=== PATIENT | female | born 1975 | race Caucasian/White ===

== ENCOUNTER 2017-01-25 12:01 | Inpatient (IN) | payer OTHER ==
[~2017-01-25] VITALS: Ht 152.4 cm; Wt 62.7 kg
[~2017-01-25 12:01] MED LIST: Hydrocodone Bit/Acetaminophen PO; METF500T4 PO
[2017-01-25] MEDS ORDERED: SOD CHLORIDE 0.9% 1,000 ML IV STA (13:48)
[2017-01-25] MEDS ORDERED: METF1000 PO (13:57)
[2017-01-25] MEDS ORDERED: INSU100I31 SQ (13:58)
[2017-01-25] MEDS ORDERED: INSU100C SQ (13:59)
--- NOTE | 2017-01-25 14:06 | RADRPT ---
PROCEDURE: XR Chest. CLINICAL INDICATION: Numbness TECHNIQUE: Chest AP portable. COMPARISON: 01/04/2016 FINDINGS: The mediastinal structures are unremarkable. The heart is normal in size and configuration. The pu lmonary vascularity is normal. The lung degroot are unremarkable. No consolidation is identified. The pleural spaces are unremarkable. The axial skeleton is unremarkable. IMPRESSION: No active intrathoracic disease. RPTAT: HGDB .Danilo Sanchez MD, MD Date Time Electronically viewed and signed by .Danilo Sanchez MD, MD on 01/25/2017 14:06 .B/
[2017-01-25 14:08] LABS: ADD SCAN DIFF NO
[2017-01-25 14:11] LABS: BASOPHILS % 0.4 % (0.0-2.0); EOSINOPHILS # 0.1 10^3/ul (0.0-0.5); EOSINOPHILS % 0.7 % (0.0-7.0); HEMATOCRIT 40.2 % (37.0-47.0); HEMOGLOBIN 14.8 g/dl (12.0-16.0); LYMPHOCYTES # 2.7 10^3/ul (0.8-2.9); LYMPHOCYTES % 24.4 % (15.0-51.0); MEAN CORPUSCULAR HEMOGLOBIN 31.3 pg (29.0-33.0); MEAN CORPUSCULAR HGB CONC 36.8 g/dl (32.0-37.0); MONOCYTE # 0.5 10^3/ul (0.3-0.9); MONOCYTES % 4.6 % (0.0-11.0); NEUTROPHIL # 7.5 10^3/ul (1.6-7.5); NEUTROPHILS % 69.3 % (39.0-77.0); PLATELET COUNT 246 10^3/UL (140-415); RED BLOOD COUNT 4.73 10^6/ul (4.20-5.40); RED CELL DISTRIBUTION WIDTH 11.9 % (11.5-14.5); WHITE BLOOD COUNT 10.9 10^3/ul (4.8-10.8)
[2017-01-25] MEDS ORDERED: LIRA0.6P SQ (14:19)
[2017-01-25 14:21] LABS: INR 0.91; PROTIME 12.3 Sec (12.2-14.2)
[2017-01-25 14:22] LABS: PARTIAL THROMBOPLASTIN TIME 22.4 Sec (25.0-35.0)
[2017-01-25 14:23] LABS: ALBUMIN/GLOBULIN RATIO 1.07
[2017-01-25 14:24] LABS: ALANINE AMINOTRANSFERASE 16 IU/L (13-69); ALKALINE PHOSPHATASE 127 IU/L (42-121); ASPARTATE AMINO TRANSFERASE 17 IU/L (15-46); BILIRUBIN,TOTAL 0.6 mg/dl (0.2-1.3); BLOOD UREA NITROGEN 10 mg/dl (7-20); CALCIUM 9.6 mg/dl (8.4-10.2); CARBON DIOXIDE 23 mmol/L (21-31); CHLORIDE 103 mmol/L (97-110); CREATININE 0.45 mg/dl (0.44-1.00); GLUCOSE 172 mg/dl (70-220); POTASSIUM 3.5 mmol/L (3.5-5.1)
[2017-01-25 14:25] LABS: ACETAMINOPHEN < 10.0 ug/ml (10.0-30.0); ALBUMIN 4.2 g/dl (3.3-4.9); BILIRUBIN,INDIRECT 0.6 mg/dl (0-1.1); CREATINE KINASE 42 IU/L (23-200); ETHANOL < 10.0 mg/dl; SALICYLATE < 1.0 mg/dl (5.0-30.0); TOTAL PROTEIN 8.1 g/dl (6.1-8.1)
[2017-01-25 14:58] LABS: CK-MB 0.53 ng/ml (0.0-2.4)
[2017-01-25 15:03] LABS: TROPONIN-I < 0.012 ng/ml (0.00-0.12)
[2017-01-25 15:27] LABS: T3 UPTAKE 28.7 % (23.5-40.5)
[2017-01-25] MEDS ORDERED: LORAZEPAM 2 MG INJ IV ONE (15:30)
[2017-01-25 15:45] LABS: ADD UMIC YES; URINE BILIRUBIN (Dip) NEGATIVE (NEGATIVE); URINE BLOOD (Dip) NEGATIVE (NEGATIVE); URINE KETONES (Dip) NEGATIVE (NEGATIVE); URINE LEUKOCYTE ESTERASE (Dip) TRACE (NEGATIVE); URINE NITRITE (Dip) POSITIVE (NEGATIVE); URINE TOTAL PROTEIN (Dip) NEGATIVE (NEGATIVE); URINE UROBILINOGEN (Dip) 0.2 E.U./dL (0.1-1.0)
[2017-01-25 15:54] LABS: URINE COLOR YELLOW (YELLOW)
--- NOTE | 2017-01-25 15:55 | RADRPT ---
PROCEDURE: CT Brain without contrast. CLINICAL INDICATION: Altered mental status status post recent head trauma. TECHNIQUE: A CT of the brain was performed on a multidetector CT scanner utilizing axial sections from the skull base through the vertex without contrast. Images were reviewed on a high-resolution [employer] workstation. Exam CTDI = 39.15 mGy and the DLP = 554.95 mGy-cm. One or more of the following dose reduction techniques were used: Automated exposure control Adjustment of the mA and/or kV according to patient size. Use of iterative reconstruction technique. COMPARISON: None available FINDINGS: There is no evidence of intracranial hemorrhage, mass effect or midline shift. No abnormal intra-ax ial or extra-axial fluid collections are seen. The density of the brain is normal and the llamas/whit e matter differentiation is well preserved. The osseous structures are unremarkable. Paranasal si nuses are clear. IMPRESSION: 1. No intracranial hemorrhage, mass effect or midline shift. RPTAT: BB .Kavin Ayala MD, MD Date Time Electronically viewed and signed by .Kavin Ayala MD, on 01/25/2017 15:54 .O/
[2017-01-25 15:59] LABS: BACTERIA,URINE MANY; SQUAMOUS EPITHELIAL CELL,UR MODERATE; URINE RBCS NONE SEEN /HPF (0)
[2017-01-25 16:22] LABS: ANION GAP 18 (8-16); SODIUM 140 mmol/L (135-144)
[2017-01-25 16:54] LABS: BARBITURATES Negative (NEGATIVE); BENZODIAZEPINES Negative (NEGATIVE); CANNABINOIDS Negative (NEGATIVE); COCAINE Negative (NEGATIVE); OPIATES Negative (NEGATIVE)
[2017-01-25] MEDS ORDERED: ASPIRIN 81 MG TAB PO ONE (17:00)
[2017-01-25] MEDS ORDERED: CEFTRIAXONE 1 GM/50 ML (PMX) 50 ML IVPB ONE (17:00)
[2017-01-25] MEDS ORDERED: METHYLPREDNISOLONE 125 MG INJ IV ONE (17:30)
[2017-01-25] MEDS ORDERED: ACETAMINOPHEN 325 MG TAB PO PRN ×2 (17:30→19:00)
[2017-01-25] MEDS ORDERED: ONDANSETRON 4 MG INJ IV PRN ×2 (17:30→19:00)
--- NOTE | 2017-01-25 17:49 | ERA ---
ER Documentation Chief Complaint Date/Time DATE: 01/25/17 TIME: 17:36 Chief Complaint NUMBNESS IN BILATERAL LEGS, ARMS, MOUTH X2 DAYS. DIFFICULTY WALKING. HPI This is a 42-year-old Stateless-speaking female with a known history of insulin- dependent diabetes mellitus diagnosed 6 years prior to arrival. The patient indicates that for the past 48 hours she has been experiencing bilateral numbness in her lower extremities. She also stated that the numbness started to progress to her fingertips bilaterally. She also indicates that she felt her tongue was numb. She denied any swelling of her tongue or lips. She denies a headache or changes in vision. She states upon awakening this morning she felt very lightheaded and dizzy with worsening of the numbness of her bilateral lower extremities. She walked to the hospital to be further evaluated and upon arrival to the hospital stated she was no longer able to move her left lower extremity or bear weight. She felt very unsteady in her gait. She been placed in a wheelchair and was brought immediately into a bed for further evaluation. She denies any chest pain or pressure that radiates to the neck arm back or jaw. She denies any trauma to her lower extremities. Patient does state however that she has received previous epidural spinal injections over the past several years during her . ROS All systems reviewed and are negative except as per history of present illness. Medications Home Meds Reported Medications Liraglutide (Victoza 2-Shaji) 0.6 Mg/0.1 Ml Pen.injctr, 1.2 MG SQ QAM, SYR 01/25/17 Insulin Lispro (Humalog) 100 Unit/1 Ml Cartridge, 6 UNIT SQ QAM 01/25/17 Insulin Degludec (Tresiba Flextouch U-100) 100 Unit/1 Ml Insuln.pen, 6 UNIT SQ QPM 01/25/17 Metformin Hcl* (Metformin Hcl*) 1,000 Mg Tablet, 1000 MG PO WITH BREAKFAST DINNE , #30 TAB 01/25/17 Discontinued Reported Medications Metformin* (Glucophage*) 500 Mg Tab, 1000 MG PO BID 07/03/13 Discontinued Scripts [Hydrocodone Bit/Acetaminophen] 1 TAB TAB No Conflict Check, 1 TAB PO Q6H Y for PAIN LEVEL 6-10 for 14 Days, TAB Prov:MARSHALL ZAVALA V. [employer] 01/06/16 Allergies Allergies: Coded Allergies: No Known Drug Allergy (Verified Allergy, Unknown, 01/25/17) PMhx/Soc History of Surgery: Yes (C. Section x1, Appendectomy) Anesthesia Reaction: No Hx Neurological Disorder: No Hx Respiratory Disorders: No Hx Cardiac Disorders: No Hx Psychiatric Problems: No Hx Miscellaneous Medical Probl: No Hx Alcohol Use: Yes (Socially ) Hx Substance Use: No Hx Tobacco Use: No Smoking Status: Never smoker Physical Exam Vitals Vital Signs Date Time Temp Pulse Resp B/P Pulse Ox O2 Delivery O2 Flow Rate FiO2 01/25/17 16:00 98.4 78 16 133/90 97 01/25/17 12:18 98.4 90 16 140/88 97 Physical Exam Constitutional:Well-developed. Well-nourished. HEENT:Normocephalic. Atraumatic.Pupils were equal round reactive to light. Moist mucous membranes.No tonsillar exudates. Neck: No nuchal rigidity. No lymphadenopathy. No posterior cervical spine tenderness or step-offs. Respiratory: Not using accessory muscles of respiration.Lungs were clear to auscultation bilaterally. No rhonchi. No rales. No wheezing. Cardiovascular: Regular rate regular rhythm.No murmurs. No rubs were appreciated.S1, S2 normal. Distal pulses are palpable 2+ bilaterally. GI: Abdomen was soft. Nontender. Non Distended. No pulsatile abdominal masses or bruits. No rebound. No guarding. Bowel sounds were present and normal. Muscle skeletal: Full range of motion of both the upper extremities bilaterally.Normal muscle tone.No assymetrical calf tenderness or swelling. Rectal: Normal sphincter tone Skin: No petechia, no purpura. No lesions on the palms or the soles of the feet. No maculopapular rash. NEURO: Patient was alert, awake, orientated x3.No facial droop. Sensation decreased to sharp and dull the bilateral lower extremities. Handgrip equal and symmetrical of the bilateral upper extremities. Patient was unable to actively move the left lower extremity and straight leg test was negative bilaterally. Full range of motion with passive range of motion of the left lower extremity. Muscular strength 3 out of 5 in the right lower extremity. Deep tendon reflexes are equal and symmetrical bilaterally. Result Diagram: 01/25/17 1355 01/25/17 1355 Results 24 hrs Laboratory Tests Test 01/25/17 12:24 01/25/17 13:55 01/25/17 14:30 Bedside Glucose 169mg/dL Acetaminophen Level < 10.0ug/ml Activated Partial Thromboplast Time 22.4Sec Alanine Aminotransferase (ALT/SGPT) 16IU/L Albumin 4.2g/dl Albumin/Globulin Ratio 1.07 Alkaline Phosphatase 127IU/L Anion Gap 18 Aspartate Amino Transf (AST/SGOT) 17IU/L Basophils # 0.010^3/ul Basophils % 0.4% Blood Urea Nitrogen 10mg/dl Calcium Level 9.6mg/dl Carbon Dioxide Level 23mmol/L Chloride Level 103mmol/L Creatine Kinase 42IU/L Creatine Kinase Index 1.3 Creatinine 0.45mg/dl Creatinine Kinase MB (Mass) 0.53ng/ml Direct Bilirubin 0.00mg/dl Eosinophils # 0.110^3/ul Eosinophils % 0.7% Ethyl Alcohol Level < 10.0mg/dl Free Thyroxine Index 2.47ug/ml Globulin 3.90g/dl Glucose Level 172mg/dl Hematocrit 40.2% Hemoglobin 14.8g/dl INR International Normalized Ratio 0.91 Indirect Bilirubin 0.6mg/dl Lymphocytes # 2.710^3/ul Lymphocytes % 24.4% Mean Corpuscular Hemoglobin 31.3pg Mean Corpuscular Hemoglobin Concent 36.8g/dl Mean Corpuscular Volume 85.0fl Mean Platelet Volume 11.0fl Monocytes # 0.510^3/ul Monocytes % 4.6% Neutrophils # 7.510^3/ul Neutrophils % 69.3% Nucleated Red Blood Cells # 0.010^3/ul Nucleated Red Blood Cells % 0.0/100WBC Platelet Count 96191^3/UL Potassium Level 3.5mmol/L Prothrombin Time 12.3Sec Prothrombin Time Ratio 1.0 Red Blood Count 4.7310^6/ul Red Cell Distribution Width 11.9% Salicylates Level < 1.0mg/dl Sodium Level 140mmol/L Thyroxine (T4) 8.6ug/dl Total Bilirubin 0.6mg/dl Total Protein 8.1g/dl Triiodothyronine (T3) Uptake 28.7% Troponin I < 0.012ng/ml White Blood Count 10.910^3/ul Urine Amphetamines Screen Negative Urine Bacteria MANY Urine Barbiturates Negative Urine Benzodiazepines Screen Negative Urine Bilirubin NEGATIVE Urine Cannabinoids Negative Urine Clarity CLOUDY Urine Cocaine Screen Negative Urine Color YELLOW Urine Glucose 0.25%% Urine Hemoglobin NEGATIVE Urine Ketones NEGATIVE Urine Leukocyte Esterase TRACE Urine Microscopic RBC NONE SEEN/HPF Urine Microscopic WBC 5-10/HPF Urine Nitrite POSITIVE Urine Opiates Screen Negative Urine Specific Effie 1.020 Urine Squamous Epithelial Cells MODERATE Urine Total Protein NEGATIVE Urine Urobilinogen 0.2 E.U./dL Urine pH 5.5 Current Medications Medications (Trade) Dose Ordered Sig/Yue Route PRN Reason Start Time Stop Time Status Last Admin Dose Admin Sodium Chloride (NS) 1,000 ml @ 1,000 mls/hr Q1H STAT IV 01/25/17 13:48 01/25/17 14:47 DC 01/25/17 14:00 Lorazepam 1 mg 1 mg ONCE ONCE IV 01/25/17 15:30 01/25/17 15:31 DC 01/25/17 15:47 Ceftriaxone Sodium (Rocephin) 50 ml @ 100 mls/hr ONCE ONCE IVPB 01/25/17 17:00 01/25/17 17:29 DC 01/25/17 17:35 Aspirin (Aspirin) 81 mg ONCE ONCE PO 01/25/17 17:00 01/25/17 17:16 DC 01/25/17 17:35 Methylprednisolone Sodium Succinate (Solu-Medrol) 125 mg ONCE ONCE IV 01/25/17 17:30 01/25/17 17:31 DC 01/25/17 17:35 Ondansetron HCl (Zofran Inj) 4 mg BRIDGE ORDER PRN IV NAUSEA AND/OR VOMITING 01/25/17 17:30 01/26/17 17:29 Acetaminophen (Tylenol Tab) 650 mg ER BRIDGE PRN PO MILD PAIN/FEVER 01/25/17 17:30 01/26/17 17:29 Procedures/MDM The patient presented to the emergency department with numbness of her lower extremities and my differential diagnosis included but was not limited to spinal origins of the pain such as fracture, osteomyelitis, epidural abscess, neoplasm, spondylolishtesis, discogenic, cauda equina syndrome or musculoligamentous. Nonspinal causes such as AAA, upper UTI, renal colic, aortic dissection, abdominal neoplasm were also considered as an etiology into their pain. The patient had IV access that was established by nursing staff. The patient appeared to be in a significant amount of agitation therefore was given IV Ativan intravenously. The patient had weakness of her left lower extremity but was not a TPA candidate given that her symptoms have started over 48 hours prior to arrival. I did indicate that her paresthesias could be a result of diabetic neuropathy but this did not explain the patient's weakness of her left lower extremity. I obtained a CT scan of the head which showed no acute intratubal hemorrhage mass-effect or midline shift. I did feel is necessary to rule out application such as a spinal epidural abscess given that she has had previous epidural injections and therefore the patient is receiving an MRI with and without contrast of the spine. Patient was given IV steroids prophylactically which include 125 mg of solumedrol intravenously. The patient had a urinary tract infection and after urine culture was obtained she did receive IV ceftriaxone. Observation Note: Time: 6 hours Family Hx: No Hypertension Evaluation: Multiple exams showed very mild improvement of the weakness of her left lower extremity. Initially the patient was unable to lift the left lower extremity against gravity and roughly 4 hours after being in the emergency department and receiving Solu-Medrol the patient was able to increase her muscular strength to 2 out of 5 in the left lower extremity Patient will be admitted for further observation into the etiology and to her paresthesias and weakness of her left lower extremity under the care of the hospitalist Dr. Multani. Departure Diagnosis: Primary Impression: Paresthesias Additional Impressions: Weakness of left lower extremity UTI (urinary tract infection) Qualified Code: N30.00 - Acute cystitis without hematuria Condition: Serious KINGSINAI ABARCA Jan 25, 2017 17:47
[2017-01-25 17:57] VITALS: TEMP 98.4
[2017-01-25] MEDS ORDERED: MAGNESIUM HYDROXIDE 30ML CUP PO PRN (19:00)
[2017-01-25] MEDS ORDERED: HYDROCODONE/APAP (5/325) TAB PO PRN (19:00)
[2017-01-25] MEDS ORDERED: NACL 0.9% 3 ML SYG IV SCH (19:00)
[2017-01-25] MEDS ORDERED: ALBUTEROL/IPRATROPIUM (NEB) 3 ML AMP HHN PRN (19:00)
[2017-01-25] MEDS ORDERED: NA PHOSPHATE/BIPHOS 133 ML ENEMA PR PRN (19:00)
[2017-01-25] MEDS ORDERED: NITROGLYCERIN (SL) 0.4 MG TAB SL PRN (19:00)
[2017-01-25] MEDS ORDERED: morphine 2 MG INJ IV PRN (19:00)
[2017-01-25] MEDS ORDERED: GLUCOSE GEL 15 GRAM TUBE BUCCAL PRN (19:00)
[2017-01-25] MEDS ORDERED: LORAZEPAM 2 MG INJ IV PRN (19:00)
[2017-01-25] MEDS ORDERED: hydrALAzine 20 MG INJ IV PRN (19:00)
[2017-01-25] MEDS ORDERED: DEXTROSE 50% 50 ML SYRINGE IV PRN ×2 (19:00)
[2017-01-25] MEDS ORDERED: GLUCAGON 1 MG INJ IM PRN (19:00)
[2017-01-25] MEDS ORDERED: DOCUSATE SODIUM 100 MG CAP PO PRN (19:00)
[2017-01-25] MEDS ORDERED: GLUCOSE GEL 15 GRAM TUBE PO PRN ×2 (19:00)
--- NOTE | 2017-01-25 19:42 | RADRPT ---
PROCEDURE: Carotid ultrasound CLINICAL INDICATION: Lower extremity numbness and dizziness, carotid bruits TECHNIQUE: Lockwood scale, color doppler, spectral doppler ultrasound of the bilateral carotid and helder tebral arteries. This study indirectly references the measurement of the distal ICA diameter as the denominator for s tenosis measurement. Validated velocity measurements with angiographic measurements, velocity criter ia are extrapolated from diameter data as defined by: *Cartoid artery stenosis: lockwood-scale and Doppl er US diagnosis. Society of Radiologists in Ultrasound Consensus Conference. Radiology 2003; 229: 34 0-346. U Consensus Conference Criteria for the Diagnosis of Carotid Artery Stenosis* Degree of Stenosis, % ICA PSV, cm/sec Plaque Estimate, % ICA/CCA PSV Ratio Normal <125 None <2.0 <50 <125 <50 <2.0 50 69 125-230 >50 2.0-4.0 >70 but less than near occlusion >230 >50 <4.0 Near occlusion High, low, or undetectable Visible Variable Total occlusion Undetectable Visible, no detectable lumen Not applicable COMPARISON: No prior studies are available for comparison. FINDINGS: Location Right CCA84 cm/sec Prox ICA 63 cm/sec Mid ICA71 cm/sec Dist ICA68 cm/sec ICR764 cm/sec ICA/CCA0.18 Left CCA89 cm/sec Prox ICA 61 cm/sec Mid ICA83 cm/sec Dist ICA80 cm/sec WQR371 cm/sec ICA/CCA0.9 Plaque burden: No significant plaque is seen. Antegrade flow is seen within the vertebral arteries bilaterally. IMPRESSION: No evidence of a hemodynamically significant carotid stenosis. RPTAT: AADD .Vikash Rodrigues MD, MD Date Time Electronically viewed and signed by .Vikash Rodrigues MD, on 01/25/2017 19:42 .B/
[2017-01-25] MEDS: SOD CHLORIDE 0.45% 1,000 ML IV SCH (19:49)
[2017-01-25 20:25] VITALS: BP 153/72; PULSE 82; RESP 18
[2017-01-25] MEDS ORDERED: INSULIN DEGLUDEC 6 UNIT SQ SCH (21:00)
[2017-01-25 21:26] VITALS: PULSE 90
[2017-01-25 21:46] VITALS: BP 138/72; PULSE 87; RESP 16; Ht 152.4 cm; Wt 62.7 kg
[2017-01-25] MEDS: HEPARIN 5,000 UNIT/0.5 ML SYG SC SCH (22:12)
[2017-01-25] MEDS: INSULIN ASPART [NOVOLOG] 3 ML PEN SC SCH (22:12)
[2017-01-26] VITALS (12 sets, daily range): BP systolic 112–142; BP diastolic 64–77; PULSE 84–109; RESP 14–20
--- NOTE | 2017-01-26 00:45 | RADRPT ---
PROCEDURE: MRI Brain without contrast. CLINICAL INDICATION: Urinary tract infection. Numbness and dizziness.. TECHNIQUE: MRI of the brain was performed with the following sequences obtained: Sagittal, coronal and axial T1-weighted, axial T2-weighted, axial FLAIR, axial diffusion weighted (with ADC map), and coronal GRE. COMPARISON: CT head 01/25/2017 FINDINGS: Areas of restricted diffusion involving the cortices of the parasagittal frontal lobes are present b ilaterally as well as within the right greater than left anterior cerebral artery distributions, ass ociated hyperintense FLAIR signal is present in the series, findings consistent with subacute ischem ic type infarcts possibly related to septic embolism or vasculitis. No additional areas of infarct are noted. No hemorrhage, mass effect or mass lesion is present. The extraaxial spaces are clear o f collections. The ventricular system and sulci are normal. No signal alteration is present within the brainstem or cerebellum. The fourth ventricle is midline and the craniocervical junction lesion is intact. The area of the sella is normal. The bony calvarium and skull base are intact. The visualized paranasal sinuses and mastoid air cell s are clear. Physiologic flow voids within the internal carotid and vertebral arteries are maintain ed. RPTAT:HJJR IMPRESSION: 1. Bilateral anterior cerebral artery distribution subacute ischemic type infarcts involving the cor saulo of the parasagittal posterior frontal lobes near the convexity and the right greater than left c entrum semiovale white matter without associated mass effect. Differential diagnostic possibilities include embolic infarcts, vasculitis and reversible ischemic encephalopathy. Follow-up evaluation i s recommended. 2. No mass effect or hemorrhage is present. Physician Robin Date Time Electronically viewed and signed by Physician Robin on 01/26/2017 00:44 /
--- NOTE | 2017-01-26 00:51 | RADRPT ---
PROCEDURE: MR Lumbar Spine without and with contrast. CLINICAL INDICATION: Numbness and nausea. The patient cannot move lower extremities. Numbness in both legs. TECHNIQUE: An MRI of the lumbar spine was performed utilizing the following sequences: Sagittal T1 -weighted, sagittal T2-weighted, sagittal STIR, axial T2-weighted dual echo. After the intravenous i njection of 10 cc Magnevist, axial and sagittal T1 fat suppressed images are obtained COMPARISON: None. FINDINGS: Vertebral bodies: Transitional tab anatomy is present at the lumbosacral junction, the most caudal n ormal appearing discs designated as L5-S1 for the purposes of this report. Should future surgical i ntervention ever be contemplated, verification of the levels with a complete lumbar spine series or CT recommended. Hemangiomata, hyperintense on T1 images with decreased signal on the post contrast fat suppressed sequences are present in the T12, L1 and L2 designated levels. There is no pathologi c enhancement, compression fracture or subluxation.. Conus medularis region: Normal in signal intensity and location terminating at the L1 level. No path ologic intraspinal enhancement is present T12-L1: No discogenic abnormality of significance is seen. There is no facet arthropathy. The centr al canal is patent. There is no evidence for foraminal stenosis. L1-L2: No discogenic abnormality of significance is seen. There is no facet arthropathy. The ligamen jennifer flava are normal in thickness. The central canal is patent. There is no evidence for foraminal stenosis. L2-L3: No discogenic abnormality of significance is seen. There is no facet arthropathy. The ligamen jennifer flava are normal in thickness. The central canal is patent. There is no evidence for foraminal stenosis. L3-L4: There is signal loss without loss of disk stature and a broad-based 5 mm central and left par acentral disk protrusion causing mild left lateral recess stenosis. There is no facet arthropathy. T he ligamentum flava are normal in thickness. The central canal is patent. There is no evidence for foraminal stenosis. L4-L5: No discogenic abnormality of significance is seen. There is no facet arthropathy. The ligamen jennifer flava are normal in thickness. The central canal is patent. There is no evidence for foraminal stenosis. L5-S1: No discogenic abnormality of significance is seen. There is no facet arthropathy. The ligamen jennifer flava are normal in thickness. The central canal is patent. There is no evidence for foraminal stenosis. Sacrum and sacroiliac joints: No abnormalities are identified, the joints are normal and symmetric. None spine related findings: No abnormalities are demonstrated. RPTAT:HJJR IMPRESSION: 1. Transitional lumbosacral anatomy, the most caudal normal appearing disk designated as L5-S1 for the purposes of this report. 2. Central left paracentral 5 mm disk protrusion at the designated L3-4 level causing left lateral recess stenosis without associated central canal or foraminal narrowing. 3. No evidence of mass lesion, infection or pathologic enhancement Physician Robin Date Time Electronically viewed and signed by Physician Robin on 01/26/2017 00:51 JR/
[2017-01-26] MEDS: INSULIN ASPART [NOVOLOG] 3 ML PEN SC SCH ×7 (00:53→21:48)
[2017-01-26] MEDS: DEXAMETHASONE 4 MG/ML 1 ML INJ IV SCH ×3 (00:53→11:34)
--- NOTE | 2017-01-26 00:56 | RADRPT ---
PROCEDURE: MR thoracic spine without and with contrast CLINICAL INDICATION: Numbness to lower extremities and nausea. TECHNIQUE: An MRI of the thoracic spine was performed utilizing sagittal T1-weighted, sagittal and axial T2-weighted, and sagittal STIR. After the intravenous injection of 10 cc Magnevist, axial and sagittal postcontrast T1 fat suppressed images are obtained COMPARISON: None available. FINDINGS: Vertebral bodies: Signal intensity within the T5 vertebral body level on all sequences and shows no evidence of enhancement, findings most likely an atypical hemangioma. More typical small hemangiom anant are present in T7 and T12. There is no evidence of fracture or pathologic enhancement. The kypho sis is intact as is alignment. Thoracic spinal cord: Normal in signal intensity and caliber at every level. No abnormal intraspinal enhancement is demonstrated T1-2: There is preservation of disk signal intensity and stature with no central canal or foraminal stenosis. The facet joints are normal. T2-3: No discogenic abnormality of significance is seen and there is no central canal or foraminal s tenosis. The facet joints are intact. T3-4: No discogenic abnormality of significance is seen and there is no central canal or foraminal stenosis. The facet joints are intact. T4-5: No discogenic abnormality of significance is seen and there is no facet arthropathy, central canal or foraminal stenosis. T5-6: No discogenic abnormality of significance is seen and there is no facet arthropathy, central canal or foraminal stenosis T6-7: No discogenic abnormality of significance is seen and there is no central canal or foraminal stenosis. The facet joints are intact. T7-8: No discogenic abnormality of significance is seen and there is no facet arthropathy, central c anal or foraminal stenosis T8-9: No discogenic abnormality of significance is seen and there is no facet arthropathy, central canal or foraminal stenosis T9-10: No discogenic abnormality of significance is seen and there is no facet arthropathy, central canal or foraminal stenosis T10-11: No discogenic abnormality of significance is seen and there is no facet arthropathy, central canal or foraminal stenosis T11-12: No discogenic abnormality of significance is seen and there is no facet arthropathy, centra l canal or foraminal stenosis T12-L1: No discogenic abnormality of significance is seen and there is no facet arthropathy, centra l canal or foraminal stenosis Non spine related findings: No abnormalities of significance are demonstrated. RPTAT:HJJR IMPRESSION: 1. No discogenic abnormalities significance at any level and no evidence of central canal or forami nal stenosis in the thoracic spine. 2. Normal appearing thoracic spinal cord without evidence of pathologic enhancement. 3. Hemangiomata of the vertebral bodies including what is likely an atypical signal pattern for the T5 level. Physician Robin Date Time Electronically viewed and signed by Jose Martin Kaur Physician on 01/26/2017 00:55 JR/
[2017-01-26] MEDS: PANTOPRAZOLE 40 MG INJ IV SCH (05:22)
[2017-01-26] MEDS: SOD CHLORIDE 0.45% 1,000 ML IV SCH ×3 (07:53→21:13)
[2017-01-26 08:02] LABS: ADD SCAN DIFF NO
[2017-01-26 08:03] LABS: CHOL/HDL RATIO 3.3 RATIO
[2017-01-26] MEDS: ASPIRIN (EC) 325 MG TAB PO SCH (08:20)
[2017-01-26] MEDS: HEPARIN 5,000 UNIT/0.5 ML SYG SC SCH ×2 (08:21→21:49)
[2017-01-26] MEDS ORDERED: INSULIN LISPRO 6 UNIT SQ SCH (09:00)
[2017-01-26] MEDS ORDERED: INSULIN GLARGINE [LANtus] 3 ML PEN SC SCH (09:00)
[2017-01-26] MEDS ORDERED: NON-FORMULARY/PATIENT OWN MED (Liraglutide (Victoza 2-Pak) 1.2 MG) SQ SCH (09:00)
[2017-01-26 09:20] LABS: BASOPHILS % 0.1 % (0.0-2.0); HEMATOCRIT 37.6 % (37.0-47.0); HEMOGLOBIN 13.6 g/dl (12.0-16.0); LYMPHOCYTES % 6.8 % (15.0-51.0); MEAN CORPUSCULAR HEMOGLOBIN 31.1 pg (29.0-33.0); MEAN CORPUSCULAR HGB CONC 36.2 g/dl (32.0-37.0); MEAN CORPUSCULAR VOLUME 85.8 fl (82.0-101.0); MEAN PLATELET VOLUME 11.1 fl (7.4-10.4); MONOCYTE # 0.1 10^3/ul (0.3-0.9); MONOCYTES % 0.5 % (0.0-11.0); NEUTROPHIL # 14.1 10^3/ul (1.6-7.5); NEUTROPHILS % 92.1 % (39.0-77.0); PLATELET COUNT 232 10^3/UL (140-415); RED BLOOD COUNT 4.38 10^6/ul (4.20-5.40); RED CELL DISTRIBUTION WIDTH 11.9 % (11.5-14.5); WHITE BLOOD COUNT 15.3 10^3/ul (4.8-10.8)
[2017-01-26 09:29] LABS: POTASSIUM 3.9 mmol/L (3.5-5.1)
[2017-01-26 09:30] LABS: THYROID STIMULATING HORMONE 0.217 MIU/L (0.465-4.680)
[2017-01-26 09:31] LABS: CREATININE 0.43 mg/dl (0.44-1.00)
[2017-01-26 09:32] LABS: MAGNESIUM 1.9 mg/dl (1.7-2.5); PHOSPHORUS 3.5 mg/dl (2.5-4.9)
--- NOTE | 2017-01-26 10:31 | HP ---
Date/Time of Note Date/Time of Note DATE: 01/26/17 TIME: 10:21 Assessment/Plan VTE Prophylaxis VTE Prophylaxis Intervention: heparin Lines/Catheters IV Catheter Type (from Nrsg): Peripheral IV Assessment/Plan Assessment/Plan IMPRESSION 1. Left leg weakness, most likely 2/2 CVA 2. Subacute CVA PLAN Left leg weakness is most likely 2/2 CVA. Spinal images without caude equina - Cont Aspirin and statin - physical therapy - Awaiting neurology consult HPI/ROS Admit Date/Time Admit Date/Time Jan 25, 2017 at 17:17 Hx of Present Illness This is a 42 yo female with hx of DM and cholecystitis, status post cholecystectomy in 2016, appendectomy and presented to [facility] with left leg weakness of 3 days duration. Symptom is of acute onset. Denied trauma, dysarthria, facial droop, visual disturbances, chest pain or Shortness of breath. she also denied bowel or urinary incontinence or seizure like activities. At the onset of symptom, she said she bumped her forehead into an open door sustaining very small laceration above left eye. denied loss of consciousness. Left leg weakness is getting much better. Initially, seems like she had almost complete paralysis, but now she has regained much of her strength back. . PMH/Family/Social Past Medical History Medical History: diabetes Past Surgical History Past Surgical Hx: appendectomy, cholecystectomy, other (c/s) Social History Alcohol Use: none Smoking Status: Never smoker Drug Use: none Exam/Review of Systems Vital Signs Vitals Vital Signs Date Time Temp Pulse Resp B/P Pulse Ox O2 Delivery O2 Flow Rate FiO2 01/26/17 08:13 84 01/26/17 07:49 98.2 18 119/71 95 01/26/17 07:18 Room Air Intake and Output 01/25/17 01/25/17 01/26/17 15:00 23:00 07:00 Intake Total 900 ml Balance 900 ml Exam Constitutional: alert, oriented, well developed Head: atraumatic, normocephalic Eyes: EOMI, PERRL Neck: non-tender, supple Respiratory: clear to auscultation, normal air movement Cardiovascular: nl pulses, regular rate and rhythm Gastrointestinal: non-tender, soft Extremities: normal pulses Neurological: focal weakness, other (of left leg. also left leg numbess) Labs Result Diagram: 01/26/1752 01/26/17651 Medications Medications Current Medications Ondansetron HCl (Zofran Inj) 4 mg Q6H PRN IV NAUSEA AND/OR VOMITING; Start 01/25 at 19:00 Acetaminophen (Tylenol Tab) 650 mg Q6H PRN PO PAIN LEVEL 1-3 OR FEVER; Start at 19:00 Acetaminophen/ Hydrocodone Bitart ([place] (5/325)) 1 tab Q6H PRN PO MODERATE PAIN LEVEL 4-6; Start 01/25/17 at 19:00 Morphine Sulfate (morphine) 2 mg Q4H PRN IV SEVERE PAIN LEVEL 7-10; Start at 19:00 Docusate Sodium (Colace) 100 mg Q12H PRN PO CONSTIPATION; Start 01/25/17 at 19: 00 Magnesium Hydroxide (Milk Of Mag) 30 ml DAILY PRN PO CONSTIPATION; Start at 19:00 Sodium Biphosphate/ Sodium Phosphate (Fleet Enema) 133 ml DAILY PRN [place] CONSTIPATION; Start 01/25/17 at 19:00 Pantoprazole (Protonix Iv) 40 mg DAILY@06 IV Last administered on 01/26/17 05: 22; Admin Dose 40 MG; Start 01/26/17 at 06:00 Heparin Sodium (Porcine) 5000 unit 5,000 unit Q12 SC Last administered on 08:21; Admin Dose 5,000 UNIT; Start 01/25/17 at 21:00 Sodium Chloride (1/2 NS) 1,000 ml @ 75 mls/hr [id number] IV Last administered on 01/25/17 19:49; Admin Dose 75 MLS/HR; Start 01/25/17 at 18:33 Lorazepam (Ativan) 0.5 mg Q6H PRN IV ANXIETY; Start 01/25/17 at 19:00 Hydralazine HCl 10 mg 10 mg Q6H PRN IV ELEVATED BLOOD PRESSURE; Start 01/25/17 at 19:00 Ceftriaxone Sodium (Rocephin) 50 ml @ 100 mls/hr Q24H IVPB ; Start 01/26/17 at 17:30 Nitroglycerin (Nitroglycerin (Sl Tab) 0.4 Mg) 1 tab Q5M PRN SL ANGINA; Start at 19:00 Aspirin (Ecotrin) 325 mg DAILY PO Last administered on 01/26/17 08:20; Admin Dose 325 MG; Start 01/26/17 at 09:00 Miscellaneous Information 1.2 mg QAM SQ ; Start 01/26/17 at 09:00; Status UNV Dexamethasone (Decadron) 2 mg Q6 IV Last administered on 01/26/17 05:22; Admin Dose 2 MG; Start 01/26/17 at 00:00 Insulin Aspart (Novolog Insulin Pen) NOVOLOG *MILD* ALGORI... Q4 SC Last administered on 01/26/17 08:26; Admin Dose 3 UNIT; Start 01/25/17 at 21:00 Miscellaneous Information 1 ea NOTE XX ; Start 01/25/17 at 19:00 Glucose (Glutose) 15 gm Q15M PRN PO DECREASED GLUCOSE; Start 01/25/17 at 19:00 Glucose (Glutose) 22.5 gm Q15M PRN PO DECREASED GLUCOSE; Start 01/25/17 at 19:00 Dextrose (D50w Syringe) 25 ml Q15M PRN IV DECREASED GLUCOSE; Start 01/25/17 at 19:00 Dextrose (D50w Syringe) 50 ml Q15M PRN IV DECREASED GLUCOSE; Start 01/25/17 at 19:00 Glucagon (Glucagen) 1 mg Q15M PRN IM DECREASED GLUCOSE; Start 01/25/17 at 19:00 Glucose (Glutose) 15 gm Q15M PRN BUCCAL DECREASED GLUCOSE; Start 01/25/17 at 19: 00 Atorvastatin Calcium (Lipitor) 20 mg HS PO ; Start 01/26/17 at 21:00 Insulin Glargine (Lantus) 12 unit AM SC Last administered on 01/26/17 10:05; Admin Dose 12 UNIT; Start 01/26/17 at 09:00 DEISY MIRZA MD Jan 26, 2017 10:31
[2017-01-26] MEDS ORDERED: HYPOGLYCEMIA PROTOCOL when Glucose is <70 mg/dL or symptomatic <90 mg/dL. XX ONE (16:00)
[2017-01-26] MEDS ORDERED: Discontinue Glyburide, Glipizide, and/or Glimepiride prior to starting Insulin XX ONE (16:00)
--- NOTE | 2017-01-26 16:07 | PN ---
DATE: 01/26/2017 SUBJECTIVE: The patient is ambulating. Per nursing staff, she has more strength in her left lower extremity now, but still somewhat weak. Still waiting to be seen by neurology team. Denies any hea daches or vision changes. OBJECTIVE VITAL SIGNS: Stable. GENERAL: The patient is lying in bed, answering questions appropriately. No acute distress. HEENT: Pupils equal, round, react to light. Extraocular muscles intact. NECK: Supple, no thyromegaly. LUNGS: Clear to auscultation bilaterally. CARDIOVASCULAR: S1, S2 heard. No rubs or gallops. ABDOMEN: Soft, nontender, nondistended. Normal bowel sounds. No rebound or guarding. MUSCULOSKELETAL: No lower extremity edema bilaterally. NEUROLOGIC: She has about 4/5 strength on the left lower extremity. Sensation appears to be intact , 5/5 strength in the right lower extremity and in the bilateral upper extremities as well. She is able to ambulate, but still having some weakness. She needs assistance when not ambulating. LABORATORY: Triglycerides are 191, total cholesterol is 119, LDL is 45, HDL is 36. Her A1c is 8.5. Her UA does show positive nitrites and trace leukocyte esterase positive. The urine culture preli minary shows greater than 100,000 gram-negative rods. The MRI of the brain did show bilateral anterior cerebral artery distribution, subacute ischemic typ e infarcts involving the cortex of the parasagittal posterior frontal lobes near the convexity and t he right greater than the left centrum semiovale white matter, but no associated mass effect. Lumba r spine MRI showed central left paracentral 5 mm disk protrusion at the definite L3 to L4 level caus ing left lateral recess stenosis without associated central canal or foraminal narrowing. T spine MR I showed a hemangiomata of the vertebral bodies, including what is likely an atypical signal pattern for T5 level, otherwise no discogenic abnormalities significant at any level. No evidence of any c entral canal foraminal stenosis of the T spine. ASSESSMENT AND PLAN: A 42-year-old female coming in with left lower extremity weakness for the last 2 days with signs of subacute infarct on brain imaging. 1. Lower extremity weakness. Symptoms likely secondary to acute stroke, less likely secondary to a ny kind of T or L-spine abnormalities. For now, continue high dose statin and high dose aspirin. A waiting neurology consult, follow up their recommendations. Will cautiously continue steroids, but consider weaning dose since there is less likely of a cord pathology at this point. 2. Continue neuro checks as well. PT and OT consult, follow up their recommendations as well. Con addictions therapist speech therapy evaluation as well. 3. Type 2 diabetes, uncontrolled. Continue insulin sliding scale as well as Lantus insulin. Consi trey adjusting the dosages as well. 4. Urinary tract infection. Again, follow up final culture results. Continue broad-spectrum antib iotics for now. Tylenol p.r.n. pain, fevers. 5. Gastrointestinal prophylaxis. Proton pump inhibitors. 6. Deep venous thrombosis prophylaxis. Heparin subcutaneously. Dictated By: MALLY MIRANDA Conf#: [id number] DID#: [id number]
[2017-01-26] MEDS: CEFTRIAXONE 1 GM/50 ML (PMX) 50 ML IVPB SCH (18:09)
[2017-01-26] MEDS ORDERED: ATORVASTATIN 20 MG TAB PO SCH (21:00)
[2017-01-26] MEDS: ATORVASTATIN 80 MG TAB PO SCH (21:40)
[2017-01-27] VITALS (12 sets, daily range): BP systolic 100–128; BP diastolic 56–85; PULSE 60–78; RESP 20
[2017-01-27] MEDS: ACCUCHECK XX SCH (02:08)
--- NOTE | 2017-01-27 03:55 | SP ---
DATE OF PROCEDURE: 01/25/2017 REFERRING PHYSICIAN: Dr. Qiu Thank you for asking me to see the patient with you. HISTORY OF PRESENT ILLNESS: The patient is a 43-year-old with a past medical history of diabetes, c holecystitis, status post cholecystectomy 2016, appendectomy. The patient admitted with left-sided numbness and tingling with the possibility of weakness for which the patient was admitted to Dr. Brigette castaneda's service. He called me for more evaluation and treatment. CURRENT MEDICATIONS: Include 1. Prednisone 60 mg once a day. 2. Lantus 18 units. 3. Lipitor 80 mg once a day. 4. Ceftriaxone every 24 hour. 5. Aspirin 325 mg once a day. 6. Protonix 40 mg once a day. 7. Heparin 5000 twice a day. 8. Zofran 4 mg every 6 hours as needed. 9. Morphine sulfate 2 mg every 4 hours. 10. Colace 100 mg twice a day. 11. Milk of magnesia 30 mg once a day. 12. Fleet enema once a day. 13. Glucagon 1 mg twice a day. 14. Sodium chloride as needed. PHYSICAL EXAMINATION: GENERAL: Today, the patient is alert, awake, oriented for time, place, and person. Normal speech a nd normal language. CRANIAL NERVES: Cranial nerve II: Pupils equal on both sides, reactive to light. Cranial nerves I II, IV, and : Extraocular muscles intact. No nystagmus. Cranial nerve V: Equal sensation to fa ce. Cranial nerve VII: Symmetrical face. Cranial nerve VIII: Equal hearing bilaterally. Cranial nerve X: Elevates palate. Cranial nerve XI: Elevates shoulder 5/5. Cranial nerve XII: With str aight tongue. MOTOR: Right side is 4+/5. Sensation decreased on the right side for light touch and temperature. COORDINATION: [id number]-[id number] test intact. HEART: Regular rate and rhythm. LUNGS: Equal breath sounds. ABDOMEN: Soft, relaxed, nondistended. No tenderness. ASSESSMENT AND PLAN 1. The patient is a 43-year-old lady with the possibility of underlying stroke. Keep the patient o n aspirin 325 mg for stroke prophylaxis and follow up the patient with carotid Doppler and 2D echoca rdiogram. 2. Dyslipidemia. Maximize her statin, and follow up the patient with lipid panel. The patient alr chao on Lipitor 80 mg once a day. 3. History of diabetes. We will follow up the patient's hemoglobin A1c and discuss with the patien t about the importance to keep the blood sugar under good control. 4. Peripheral neuropathy probably secondary to diabetes. 5. Keep the blood pressure at the level of 140/90 or less to avoid any extension of her stroke. 6. We will follow up the patient with physical therapy and occupational therapy. Again, thank you for asking me to see the patient with you. Dictated By: IAM BUNCH/SID Conf#: [id number] DID#: [id number]
[2017-01-27] MEDS: PANTOPRAZOLE 40 MG INJ IV SCH (05:26)
--- NOTE | 2017-01-27 07:26 | PN ---
Date/Time of Note Date/Time of Note DATE: 01/27/17 TIME: 07:23 Assessment/Plan VTE Prophylaxis VTE Prophylaxis Intervention: SCD's Lines/Catheters IV Catheter Type (from Nrsg): Peripheral IV Assessment/Plan Assessment/Plan IMPRESSION 1. Left leg weakness, most likely 2/2 CVA 2. Subacute CVA 3. GNR UTI 4. Leukocytosis: combination of steroid induced and UTI 5. Diabetes: A1C 8.5 PLAN Left leg weakness is most likely 2/2 CVA. Spinal images without caude equina - Cont Aspirin and statin - physical therapy - Appreciate neurology consult - For GNR UTI, will cont abx. f/u speciation and sensitivity - Insulin for diabetes Subjective 24 Hr Interval Summary Free Text/Dictation left leg weakness is getting better Exam/Review of Systems Vital Signs Vitals Vital Signs Date Time Temp Pulse Resp B/P Pulse Ox O2 Delivery O2 Flow Rate FiO2 01/27/17 04:28 98.5 85 20 128/85 98 01/26/17 07:18 Room Air Intake and Output 01/26/17 01/26/17 01/27/17 15:00 23:00 07:00 Intake Total 720 ml 250 ml Balance 720 ml 250 ml Exam Constitutional: alert, oriented, well developed Head: atraumatic, normocephalic Eyes: EOMI, PERRL Neck: non-tender, supple Respiratory: clear to auscultation, normal air movement Cardiovascular: nl pulses, regular rate and rhythm Gastrointestinal: non-tender, soft Extremities: normal pulses Neurological: focal weakness, other (of left leg. also left leg numbess) Results Result Diagram: 01/26/17 0652 01/26/17 0652 Results 24 hrs Laboratory Tests Test 01/26/17 08:23 01/26/17 11:41 01/26/17 17:47 01/26/17 21:39 Bedside Glucose 227 H 202 269 H 225 H Test 01/27/17 01:56 Bedside Glucose 205 Medications Medications Current Medications Ondansetron HCl (Zofran Inj) 4 mg Q6H PRN IV NAUSEA AND/OR VOMITING; Start 01/25 at 19:00 Acetaminophen (Tylenol Tab) 650 mg Q6H PRN PO PAIN LEVEL 1-3 OR FEVER; Start at 19:00 Acetaminophen/ Hydrocodone Bitart ([place] (5/325)) 1 tab Q6H PRN PO MODERATE PAIN LEVEL 4-6; Start 01/25/17 at 19:00 Morphine Sulfate (morphine) 2 mg Q4H PRN IV SEVERE PAIN LEVEL 7-10; Start at 19:00 Docusate Sodium (Colace) 100 mg Q12H PRN PO CONSTIPATION; Start 01/25/17 at 19: 00 Magnesium Hydroxide (Milk Of Mag) 30 ml DAILY PRN PO CONSTIPATION; Start at 19:00 Sodium Biphosphate/ Sodium Phosphate (Fleet Enema) 133 ml DAILY PRN [place] CONSTIPATION; Start 01/25/17 at 19:00 Pantoprazole (Protonix Iv) 40 mg DAILY@06 IV Last administered on 01/27/17 05: 26; Admin Dose 40 MG; Start 01/26/17 at 06:00 Heparin Sodium (Porcine) 5000 unit 5,000 unit Q12 SC Last administered on 21:49; Admin Dose 5,000 UNIT; Start 01/25/17 at 21:00 Sodium Chloride (1/2 NS) 1,000 ml @ 75 mls/hr [id number] IV Last administered on 01/26/17 11:34; Admin Dose 75 MLS/HR; Start 01/25/17 at 18:33 Lorazepam (Ativan) 0.5 mg Q6H PRN IV ANXIETY; Start 01/25/17 at 19:00 Hydralazine HCl 10 mg 10 mg Q6H PRN IV ELEVATED BLOOD PRESSURE; Start 01/25/17 at 19:00 Ceftriaxone Sodium (Rocephin) 50 ml @ 100 mls/hr Q24H IVPB Last administered on 01/26/17 18:09; Admin Dose 100 MLS/HR; Start 01/26/17 at 17:30 Nitroglycerin (Nitroglycerin (Sl Tab) 0.4 Mg) 1 tab Q5M PRN SL ANGINA; Start at 19:00 Aspirin (Ecotrin) 325 mg DAILY PO Last administered on 01/26/17 08:20; Admin Dose 325 MG; Start 01/26/17 at 09:00 Miscellaneous Information 1 ea NOTE XX ; Start 01/25/17 at 19:00 Glucose (Glutose) 15 gm Q15M PRN PO DECREASED GLUCOSE; Start 01/25/17 at 19:00 Glucose (Glutose) 22.5 gm Q15M PRN PO DECREASED GLUCOSE; Start 01/25/17 at 19:00 Dextrose (D50w Syringe) 25 ml Q15M PRN IV DECREASED GLUCOSE; Start 01/25/17 at 19:00 Dextrose (D50w Syringe) 50 ml Q15M PRN IV DECREASED GLUCOSE; Start 01/25/17 at 19:00 Glucagon (Glucagen) 1 mg Q15M PRN IM DECREASED GLUCOSE; Start 01/25/17 at 19:00 Glucose (Glutose) 15 gm Q15M PRN BUCCAL DECREASED GLUCOSE; Start 01/25/17 at 19: 00 Atorvastatin Calcium (Lipitor) 80 mg HS PO Last administered on 01/26/17 21:40 ; Admin Dose 80 MG; Start 01/26/17 at 21:00 Prednisone (Prednisone) 60 mg DAILY PO ; Start 01/27/17 at 09:00 Insulin Glargine (Lantus) 18 unit AM SC ; Start 01/27/17 at 09:00 Diagnostic Test (Pha) (Accucheck) 1 ea 02 XX Last administered on 01/27/17 02: 08; Admin Dose 1 EA; Start 01/27/17 at 02:00 DEISY MIRZA MD Jan 27, 2017 07:26
[2017-01-27] MEDS: INSULIN ASPART [NOVOLOG] 3 ML PEN SC SCH ×7 (08:10→20:44)
[2017-01-27] MEDS: INSULIN GLARGINE [LANtus] 3 ML PEN SC SCH (08:11)
[2017-01-27] MEDS: HEPARIN 5,000 UNIT/0.5 ML SYG SC SCH ×2 (08:12→20:45)
[2017-01-27] MEDS: ASPIRIN (EC) 325 MG TAB PO SCH (08:13)
[2017-01-27] MEDS: predniSONE 20 MG TAB PO SCH (08:14)
[2017-01-27 08:49] LABS: ADD SCAN DIFF NO
[2017-01-27 09:04] LABS: BASOPHILS % 0.2 % (0.0-2.0); EOSINOPHILS % 0.3 % (0.0-7.0); HEMATOCRIT 36.9 % (37.0-47.0); HEMOGLOBIN 13.1 g/dl (12.0-16.0); LYMPHOCYTES # 3.3 10^3/ul (0.8-2.9); LYMPHOCYTES % 32.4 % (15.0-51.0); MEAN CORPUSCULAR HEMOGLOBIN 31.1 pg (29.0-33.0); MEAN CORPUSCULAR HGB CONC 35.5 g/dl (32.0-37.0); MEAN CORPUSCULAR VOLUME 87.6 fl (82.0-101.0); MEAN PLATELET VOLUME 10.7 fl (7.4-10.4); MONOCYTE # 0.4 10^3/ul (0.3-0.9); MONOCYTES % 4.3 % (0.0-11.0); NEUTROPHIL # 6.4 10^3/ul (1.6-7.5); NEUTROPHILS % 62.4 % (39.0-77.0); PLATELET COUNT 223 10^3/UL (140-415); RED BLOOD COUNT 4.21 10^6/ul (4.20-5.40); RED CELL DISTRIBUTION WIDTH 12.2 % (11.5-14.5); WHITE BLOOD COUNT 10.3 10^3/ul (4.8-10.8)
[2017-01-27 10:19] LABS: CREATININE 0.51 mg/dl (0.44-1.00)
[2017-01-27 10:20] LABS: CALCIUM 8.7 mg/dl (8.4-10.2)
[2017-01-27] MEDS: SOD CHLORIDE 0.45% 1,000 ML IV SCH ×2 (10:33→15:35)
--- NOTE | 2017-01-27 13:14 | RADRPT ---
Echocardiogram Report Patient Name: EDUARD LA Gender: Female Date: 1975 Study Date: 26-Jan-2017 Spool Tender: MARGARITA Location: E Ref. Physician: MALLY LATHAM Quality: Adequate Procedures: Transthoracic echocardiogram with complete 2D, M-Mode, and Doppler examination. Indications: Shortness of breath. 2D/M Mode Doppler Measurement Value Normal Ranges Measurement Value Normal Ranges AoR Diam MM 2.9 cm AV Peak Brent 1.7 m/sec ACS MM 1.7 cm AV Peak PG 11.3 mmHg LVIDd 2D 4.4 3.5 - 5.6 cm LVOT Peak Brent 1.0 m/sec LVIDs 2D 2.5 2.1 - 4.1 cm LVOT Peak PG 4.1 mmHg LVPWd 2D 0.8 0.6 - 1.1 cm MV E Peak Brent 0.7 m/sec IVSd 2D 1.0 0.6 - 1.1 cm MV A Peak Brent 0.9 m/sec EDV 2D 87.2 cm3 MV E/A 0.8 ESV 2D 15.0 cm3 MV Decel Time 159 msec LA Dimen 2D 3.6 2.3 - 4.0 cm MV Decel [place] 5 MV E/A 0.8 TR Peak Brent 1.9 m/sec TR Peak PG 14.0 mmHg PV Peak Brent 1.3 m/sec PV Peak PG 7.0 mmHg RVSP 17.0 mmHg Findings Left Ventricle: Normal left ventricular systolic function. Normal left ventricular cavity size. Normal left ventricular wall thickness. Ejection fraction is visually estimated at 65 %. Tissue Doppler/Mitral Doppler indices are consistent with impaired relaxation (Stage I diastolic dysfunction). Right Ventricle: Normal right ventricular size. Normal right ventricular systolic function. Left Atrium: The left atrium is normal in size. Right Atrium: The right atrium is normal in size. Atrial Septum: Normal atrial septum. Mitral Valve: Normal appearance and function of the mitral valve with trace physiologic regurgitation. Aortic Valve: Normal appearance of the aortic valve. No significant aortic stenosis or insufficiency. Tricuspid Valve: Normal appearance and function of the tricuspid valve with trace physiologic regurgitation. Estimated peak PA systolic pressure 17 mmHg. Pulmonic Valve: Normal pulmonic valve appearance. There is trace pulmonic regurgitation. Pericardium: Normal pericardium with no significant pericardial effusion. Aorta: Normal aortic root. IVC: Normal size and normal respiratory collapse consistent with normal right atrial pressure. Pulmonary Artery: Normal pulmonary artery size. Conclusions 1.Normal left ventricular systolic function. Normal left ventricular cavity size. Normal left ventricular wall thickness. Ejection fraction is visually estimated at 65 %. Tissue Doppler/Mitral Doppler indices are consistent with impaired relaxation (Stage I diastolic dysfunction). 2.Normal right ventricular size. Normal right ventricular systolic function. 3.The left atrium is normal in size. 4.The right atrium is normal in size. 5.No significant valvular stenosis or regurgitation seen. 6.Normal pericardium with no significant pericardial effusion. Electronically Signed By: Calvin Hutchinson 27-Jan-2017 13:13:27 -0800 Patient Name: EDUARD LA Study Date: 26-Jan-[id number]
[2017-01-27] MEDS: CEFTRIAXONE 1 GM/50 ML (PMX) 50 ML IVPB SCH (17:41)
[2017-01-27] MEDS: ATORVASTATIN 80 MG TAB PO SCH (20:45)
[2017-01-28] VITALS (13 sets, daily range): BP systolic 99–114; BP diastolic 56–69; PULSE 48–63; RESP 18–20
[2017-01-28] MEDS: SOD CHLORIDE 0.45% 1,000 ML IV SCH
--- NOTE | 2017-01-28 01:16 | HKNOTE ---
DATE OF SERVICE: REFERRING PHYSICIAN: Dr. Multani. Thank you for asking me to see the patient with you. HISTORY OF PRESENT ILLNESS: The patient is 43 years old with a past medical history of diabetes, ch olecystitis, appendectomy. The patient admitted to left side tingling and numbness. CURRENT MEDICATIONS: Include: 1. Aspirin 325 mg once a day. 2. Heparin 5000 units twice a day. 3. Lipitor 80 mg once a day. 4. Lantus 18 units once a day. 5. Protonix 40 mg once a day. 6. Morphine sulfate 2 mg every 4 hours. 7. ____ once a day. 8. ____ mg once a day. 9. Sodium chloride as needed. PHYSICAL EXAMINATION: GENERAL: On exam today the patient is alert, awake, oriented to time, place, and person. Normal sp eech and normal language. CRANIAL NERVES EXAM: Cranial nerve II: Pupils are equal on both sides, reactive to light. Cranial nerves III, IV and : Extraocular muscles intact. Cranial nerve V: Equal sensation to face. General Contractor nial nerve VII: Symmetrical face. Cranial nerve VIII: Equal hearing bilaterally. Cranial nerves IX, X: Elevates ____. Cranial nerve XI: Elevates shoulder ____. Cranial nerve XII: With straigh t tongue. MOTOR EXAM: Decreased right hand architect in training. Sensation decreased for glove and sock area ____ coordinati on. COORDINATION: [id number] test intact. HEART: Regular rate and rhythm. LUNGS: Equal breath sounds. ABDOMEN: Soft, relaxed, nondistended. No tenderness. ASSESSMENT AND PLAN: 1. The patient is 42 years old with ____ underlying transient ischemic attack versus stroke. Give the patient aspirin 325 mg. Follow up the patient's color Doppler and 2D echocardiogram. 2. History of dyslipidemia. Follow up the patient with ____ and continue her on Lipitor 80 mg once a day. 3. History of diabetes. Follow up the patient with fasting blood sugar and counseling the patient about the treatment of diabetes. Follow as outpatient. 4. Brief neuropathy, probably secondary to diabetes. Follow up the patient as an outpatient for ne xt conduction study and electromyogram. 5. History of hypertension. Keep ____ 140/90 ____ for stroke. 6. Follow up the patient with physical therapy. Again, thank you for asking me to see the patient with you. Dictated By: IAM BUNCH/SID Conf#: [id number] DID#: [id number]
[2017-01-28] MEDS: ACCUCHECK XX SCH (02:10)
[2017-01-28] MEDS: PANTOPRAZOLE (EC) 40 MG TAB PO SCH (05:24)
[2017-01-28] MEDS: ASPIRIN (EC) 325 MG TAB PO SCH (08:31)
[2017-01-28] MEDS: predniSONE 20 MG TAB PO SCH (08:32)
[2017-01-28] MEDS: HEPARIN 5,000 UNIT/0.5 ML SYG SC SCH ×2 (08:37→21:04)
[2017-01-28] MEDS: INSULIN ASPART [NOVOLOG] 3 ML PEN SC SCH ×7 (08:38→21:03)
[2017-01-28] MEDS: INSULIN GLARGINE [LANtus] 3 ML PEN SC SCH (08:40)
[2017-01-28 12:21] LABS: ADD SCAN DIFF NO
[2017-01-28 12:28] LABS: BASOPHILS % 0.2 % (0.0-2.0); EOSINOPHILS % 0.1 % (0.0-7.0); HEMATOCRIT 37.2 % (37.0-47.0); HEMOGLOBIN 13.4 g/dl (12.0-16.0); LYMPHOCYTES # 1.3 10^3/ul (0.8-2.9); LYMPHOCYTES % 13.4 % (15.0-51.0); MEAN CORPUSCULAR HEMOGLOBIN 31.2 pg (29.0-33.0); MEAN CORPUSCULAR VOLUME 86.5 fl (82.0-101.0); MEAN PLATELET VOLUME 10.9 fl (7.4-10.4); MONOCYTE # 0.2 10^3/ul (0.3-0.9); MONOCYTES % 1.7 % (0.0-11.0); NEUTROPHIL # 8.2 10^3/ul (1.6-7.5); NEUTROPHILS % 83.7 % (39.0-77.0); PLATELET COUNT 217 10^3/UL (140-415); RED CELL DISTRIBUTION WIDTH 12.4 % (11.5-14.5); WHITE BLOOD COUNT 9.8 10^3/ul (4.8-10.8)
[2017-01-28 12:51] LABS: POTASSIUM 4.1 mmol/L (3.5-5.1)
[2017-01-28 12:53] LABS: CREATININE 0.48 mg/dl (0.44-1.00)
[2017-01-28 12:54] LABS: CALCIUM 8.8 mg/dl (8.4-10.2)
--- NOTE | 2017-01-28 12:59 | PN ---
Date/Time of Note Date/Time of Note DATE: 01/28/17 TIME: 12:41 Assessment/Plan VTE Prophylaxis VTE Prophylaxis Intervention: heparin Lines/Catheters IV Catheter Type (from Nrsg): Peripheral IV Assessment/Plan Assessment/Plan 1. Left side weakness, LUE>LUE, stroke related, PT/OT 2. Subacute CVA, bilateral, controlled DM, Aspirin, statin 3. E. Coli UTI, levaquin 4. Diabetes: adjust medication for better control 5. Diabetic peripheral neuropathy, neurontin 6. L3-4 disc disease, pain management 7. DVT prophylaxis: heparin Subjective 24 Hr Interval Summary Free Text/Dictation still left side weakness with left leg weaker than left arm No back pain 3 months numbness on feet Exam/Review of Systems Vital Signs Vitals Vital Signs Date Time Temp Pulse Resp B/P Pulse Ox O2 Delivery O2 Flow Rate FiO2 01/28/17 12:17 98.1 64 20 114/60 98 01/26/17 07:18 Room Air Intake and Output 01/27/17 01/27/17 01/28/17 15:00 23:00 07:00 Intake Total 2310 ml 750 ml Balance 2310 ml 750 ml Exam Constitutional: alert, oriented, well developed Psych: nl mood/affect, no complaints Head: atraumatic, normocephalic Eyes: EOMI, PERRL, nl conjunctiva, nl lids ENMT: mucosa pink and moist, nl external ears & nose, nl nasal mucosa & septum Respiratory: clear to auscultation, normal air movement, No congested cough, No crackles/rales, No diminished breath sounds, No intercostal retraction, No labored breathing, No other, No respirations, No tactile fremitus, No wheezing Cardiovascular: nl pulses, regular rate and rhythm, No S3, No S4, No bruits, No diastolic murmur, No edema, No gallop, No irregular rhythm, No jugular venous distention (JVD), No murmurs/extra sounds, No other, No rub, No systolic murmur Gastrointestinal: nl liver, spleen, non-tender, soft, No ascites, No bowel sounds, No distended, No firm, No hepatomegaly, No mass , No other, No rebound or guarding, No splenomegaly, No surgical scars, No tender Musculoskeletal: nl extremities to inspection Extremities: normal pulses, No calf tenderness, No clubbing, No cyanosis, No edema, No other, No palpable cord, No pitting pedal edema, No tenderness Neurological: TODDLER GUIDE II-XII intact, nl mental status, nl speech, other (02/27 LUE/ LLE) Skin: nl turgor Results Result Diagram: 01/28/17 1143 01/27/17 0823 Results 24 hrs Laboratory Tests Test 01/27/17 17:37 01/27/17 20:41 01/28/17 01:59 01/28/17 07:54 Bedside Glucose 259 H 245 H 273 H 252 H Test 01/28/17 11:43 01/28/17 11:57 Basophils # 0.0 Basophils % 0.2 Eosinophils # 0.0 Eosinophils % 0.1 Hematocrit 37.2 Hemoglobin 13.4 Lymphocytes # 1.3 Lymphocytes % 13.4 L Mean Corpuscular Hemoglobin 31.2 Mean Corpuscular Hemoglobin Concent 36.0 Mean Corpuscular Volume 86.5 Mean Platelet Volume 10.9 H Monocytes # 0.2 L Monocytes % 1.7 Neutrophils # 8.2 H Neutrophils % 83.7 H Nucleated Red Blood Cells # 0.0 Nucleated Red Blood Cells % 0.0 Platelet Count 217 Red Blood Count 4.30 Red Cell Distribution Width 12.4 White Blood Count 9.8 Bedside Glucose 281 H Medications Medications Current Medications Ondansetron HCl (Zofran Inj) 4 mg Q6H PRN IV NAUSEA AND/OR VOMITING; Start 01/25 at 19:00 Acetaminophen (Tylenol Tab) 650 mg Q6H PRN PO PAIN LEVEL 1-3 OR FEVER; Start at 19:00 Acetaminophen/ Hydrocodone Bitart ([place] (5/325)) 1 tab Q6H PRN PO MODERATE PAIN LEVEL 4-6; Start 01/25/17 at 19:00 Morphine Sulfate (morphine) 2 mg Q4H PRN IV SEVERE PAIN LEVEL 7-10; Start at 19:00 Docusate Sodium (Colace) 100 mg Q12H PRN PO CONSTIPATION; Start 01/25/17 at 19: 00 Magnesium Hydroxide (Milk Of Mag) 30 ml DAILY PRN PO CONSTIPATION; Start at 19:00 Sodium Biphosphate/ Sodium Phosphate (Fleet Enema) 133 ml DAILY PRN MT CONSTIPATION; Start 01/25/17 at 19:00 Heparin Sodium (Porcine) 5000 unit 5,000 unit Q12 SC Last administered on 08:37; Admin Dose 5,000 UNIT; Start 01/25/17 at 21:00 Sodium Chloride (1/2 NS) 1,000 ml @ 75 mls/hr [id number] IV Last administered on 01/28/17 00:00; Admin Dose 75 MLS/HR; Start 01/25/17 at 18:33 Lorazepam (Ativan) 0.5 mg Q6H PRN IV ANXIETY; Start 01/25/17 at 19:00 Hydralazine HCl 10 mg 10 mg Q6H PRN IV ELEVATED BLOOD PRESSURE; Start 01/25/17 at 19:00 Ceftriaxone Sodium (Rocephin) 50 ml @ 100 mls/hr Q24H IVPB Last administered on 01/27/17 17:41; Admin Dose 100 MLS/HR; Start 01/26/17 at 17:30 Nitroglycerin (Nitroglycerin (Sl Tab) 0.4 Mg) 1 tab Q5M PRN SL ANGINA; Start at 19:00 Aspirin (Ecotrin) 325 mg DAILY PO Last administered on 01/28/17 08:31; Admin Dose 325 MG; Start 01/26/17 at 09:00 Miscellaneous Information 1 ea NOTE XX ; Start 01/25/17 at 19:00 Glucose (Glutose) 15 gm Q15M PRN PO DECREASED GLUCOSE; Start 01/25/17 at 19:00 Glucose (Glutose) 22.5 gm Q15M PRN PO DECREASED GLUCOSE; Start 01/25/17 at 19:00 Dextrose (D50w Syringe) 25 ml Q15M PRN IV DECREASED GLUCOSE; Start 01/25/17 at 19:00 Dextrose (D50w Syringe) 50 ml Q15M PRN IV DECREASED GLUCOSE; Start 01/25/17 at 19:00 Glucagon (Glucagen) 1 mg Q15M PRN IM DECREASED GLUCOSE; Start 01/25/17 at 19:00 Glucose (Glutose) 15 gm Q15M PRN BUCCAL DECREASED GLUCOSE; Start 01/25/17 at 19: 00 Atorvastatin Calcium (Lipitor) 80 mg HS PO Last administered on 01/27/17 20:45 ; Admin Dose 80 MG; Start 01/26/17 at 21:00 Prednisone (Prednisone) 60 mg DAILY PO Last administered on 01/28/17 08:32; Admin Dose 60 MG; Start 01/27/17 at 09:00 Insulin Glargine (Lantus) 18 unit AM SC Last administered on 01/28/17 08:40; Admin Dose 18 UNIT; Start 01/27/17 at 09:00 Diagnostic Test (Pha) (Accucheck) 1 ea 02 XX Last administered on 01/28/17 02: 10; Admin Dose 1 EA; Start 01/27/17 at 02:00 Pantoprazole (Protonix Tab) 40 mg DAILY@06 PO Last administered on 01/28/17 05: 24; Admin Dose 40 MG; Start 01/28/17 at 06:00 LONG ALFORD MD Jan 28, 2017 12:57
[2017-01-28] MEDS: GABAPENTIN 100 MG CAP PO SCH (21:04)
[2017-01-28] MEDS: ATORVASTATIN 80 MG TAB PO SCH (21:04)
--- NOTE | 2017-01-28 22:26 | CONS ---
DATE OF ADMISSION: 01/26/2017 DATE OF CONSULTATION: REFERRING PHYSICIAN: Dr. Multani HISTORY OF PRESENT ILLNESS: The patient is a 43-year-old lady with a past medical history of dyslip idemia, diabetes, cholecystectomy. The patient admitted with left-sided numbness with possibility o f underlying TIA. CURRENT MEDICATIONS: Include 1. Aspirin 325 mg once a day. 2. Heparin 5000 twice a day. 3. Lipitor 80 mg once a day. 4. Lantus 18 units as needed. 5. Protonix 40 mg once a day. 6. Morphine sulfate 2 mg every 4 hours. 7. Sodium chloride as needed. PHYSICAL EXAMINATION: GENERAL: On exam today, the patient is alert, awake, oriented for time, place and person. Normal s peech and normal language. CRANIAL NERVES: Cranial nerve II: Pupils equal on both sides, reactive to light. Cranial nerves I II, IV, and : Extraocular muscles intact ____. Cranial nerve V: Equal sensation to face. Crani al nerve VII: Symmetrical face. Cranial nerve VIII: Equal hearing bilaterally. Cranial nerves IX , X: Elevates ____. Cranial nerve XI: Elevates shoulder 5/5. Cranial nerve XII: Straight tongue . MOTOR: Decreased right hand lacquer sprayer, 4+/5. Sensation decreased for glove and sock area for light touc h and temperature. COORDINATION: [id number] test intact. HEART: Regular rate and rhythm. LUNGS: Equal breath sounds. ABDOMEN: Soft, relaxed, nondistended. No tenderness. ASSESSMENT AND PLAN: 1. This is a patient 43 years old with underlying transient ischemic attack. Keep the patient on a spirin once a day for stroke prophylaxis, follow up the patient with statin for more evaluation and maximize her antilipid medication. 2. Diabetes with possibility of underlying peripheral neuropathy. Follow up the patient with nerve conduction study and electromyogram. 3. Lumbosacral radiculopathy in which the patient has a 5 mm disk at L3-L4 in which the patient jatinder ht need surgery consult for more evaluation and treatment. Again, thank you for asking me to see the patient with you. Dictated By: IAM BUNCH/SID Conf#: [id number] DID#: [id number]
[2017-01-29] VITALS (8 sets, daily range): BP systolic 109–120; BP diastolic 56–75; PULSE 54–70; RESP 17–20
[2017-01-29] MEDS ORDERED: ACCUCHECK XX SCH (02:00)
[2017-01-29] MEDS: PANTOPRAZOLE (EC) 40 MG TAB PO SCH (05:44)
[2017-01-29] MEDS ORDERED: LEVOFLOXACIN 250 MG TAB PO SCH (06:00)
[2017-01-29] MEDS: ASPIRIN (EC) 325 MG TAB PO SCH (08:30)
[2017-01-29] MEDS: GABAPENTIN 100 MG CAP PO SCH ×2 (08:30→11:59)
[2017-01-29] MEDS: INSULIN ASPART [NOVOLOG] 3 ML PEN SC SCH ×4 (08:43→12:43)
[2017-01-29] MEDS: HEPARIN 5,000 UNIT/0.5 ML SYG SC SCH (08:46)
[2017-01-29] MEDS ORDERED: INSULIN GLARGINE [LANtus] 3 ML PEN SC SCH (09:00)
[2017-01-29] MEDS ORDERED: predniSONE 20 MG TAB PO SCH (09:00)
[2017-01-29 10:16] LABS: ADD SCAN DIFF NO
[2017-01-29 10:19] LABS: BASOPHILS % 0.3 % (0.0-2.0); EOSINOPHILS % 0.4 % (0.0-7.0); HEMATOCRIT 36.6 % (37.0-47.0); HEMOGLOBIN 13.2 g/dl (12.0-16.0); LYMPHOCYTES # 2.7 10^3/ul (0.8-2.9); LYMPHOCYTES % 27.3 % (15.0-51.0); MEAN CORPUSCULAR HEMOGLOBIN 30.9 pg (29.0-33.0); MEAN CORPUSCULAR HGB CONC 36.1 g/dl (32.0-37.0); MEAN CORPUSCULAR VOLUME 85.7 fl (82.0-101.0); MEAN PLATELET VOLUME 10.9 fl (7.4-10.4); MONOCYTE # 0.4 10^3/ul (0.3-0.9); MONOCYTES % 4.2 % (0.0-11.0); NEUTROPHIL # 6.7 10^3/ul (1.6-7.5); NEUTROPHILS % 66.8 % (39.0-77.0); PLATELET COUNT 220 10^3/UL (140-415); RED BLOOD COUNT 4.27 10^6/ul (4.20-5.40)
[2017-01-29 10:28] LABS: POTASSIUM 3.6 mmol/L (3.5-5.1)
[2017-01-29 10:31] LABS: CREATININE 0.52 mg/dl (0.44-1.00)
[2017-01-29 10:32] LABS: CALCIUM 8.7 mg/dl (8.4-10.2)
[2017-01-29] MEDS ORDERED: GABA100C14 PO (12:44)
[2017-01-29] MEDS ORDERED: NOVO3I SC (12:44)
[2017-01-29] MEDS ORDERED: LEVO250T35 PO (12:44)
[2017-01-29] MEDS ORDERED: ASPI325T32 PO (12:44)
[2017-01-29] MEDS ORDERED: ATOR20TA38 PO (12:44)
--- NOTE | 2017-01-29 13:01 | DS ---
Date/Time of Note Date/Time of Note DATE: 01/29/17 TIME: 12:47 Discharge Summary Admission/Discharge Info Admit Date/Time Jan 26, 2017 at 13:16 Discharge Date/Time 1. Left side weakness, LUE>LUE, stroke related, PT home, follow up with neurology 2. Subacute CVA, bilateral, controlled DM, Aspirin, lipitor 3. E. Coli UTI, levaquin 4. Diabetes: resume home meds, follow up with PCP 5. Diabetic peripheral neuropathy, neurontin 6. L3-4 disc disease, pain management Final Diagnosis [place] [id number] Radiology Main Line: [phone] DIAGNOSTIC IMAGING REPORT Patient: EDUARD LA : 1975 Age: 42 Sex: F MR #: [id number] DOS: 01/25/17 2105 Ordering MD: DEISY MIRZA MD [place] [facility] [place] Room[place]Bed: [facility] Patient Condition: Stable Hx of Present Illness This is a 42 yo female with hx of DM and cholecystitis, status post cholecystectomy in 2016, appendectomy and presented to [facility] with left leg weakness of 3 days duration. Symptom is of acute onset. Denied trauma, dysarthria, facial droop, visual disturbances, chest pain or Shortness of breath. she also denied bowel or urinary incontinence or seizure like activities. At the onset of symptom, she said she bumped her forehead into an open door sustaining very small laceration above left eye. denied loss of consciousness. Left leg weakness is getting much better. Initially, seems like she had almost complete paralysis, but now she has regained much of her strength back. . Hospital Course Patient is found of having multiple subacute infarcts at bilateral anterior cerebral artery territory. The gives her weakness on left side, more on left lower extremity. Patient has been getting aspirin, statin, PT and OT. Patient will go home with PT and follow up with PCP and cardiology outpatient. Patient has disc disease at L3-4 but the weakness on left lower extremity is more likely stroke related. She does not have back pain or sciatica symptoms. Patient has numbness on both feet, it is considered DM neuropathy. I started her on neurontin yesterday, she does not have numberness on feet today. Patient has DM that was well controlled at home. She has hyperglycemia now due to steroid. I decreased her prednisone from 60 mg to 20 mg daily yesterday and stopped it today. I dont see clear indication for steroid. Patient had UTI that is treated with antibiotics. Patient has unremarkable carotid ultrasound and echocardiography. [place] [address] Radiology Main Line: [phone] DIAGNOSTIC IMAGING REPORT Patient: EDUARD LA : 1975 Age: 42 Sex: F MR #: [id number] DOS: 01/25/17 2105 Ordering MD: DEISY MIRZA MD Location: [facility] [place] Room/Bed: [facility] PROCEDURE: MRI Brain without contrast. CLINICAL INDICATION: Urinary tract infection. Numbness and dizziness.. TECHNIQUE: MRI of the brain was performed with the following sequences obtained : Sagittal, coronal and axial T1-weighted, axial T2-weighted, axial FLAIR, axial diffusion weighted (with ADC map), and coronal GRE. COMPARISON: CT head 01/25/2017 FINDINGS: Areas of restricted diffusion involving the cortices of the parasagittal frontal lobes are present bilaterally as well as within the right greater than left anterior cerebral artery distributions, associated hyperintense FLAIR signal is present in the series, findings consistent with subacute ischemic type infarcts possibly related to septic embolism or vasculitis. No additional areas of infarct are noted. No hemorrhage, mass effect or mass lesion is present. The extraaxial spaces are clear of collections. The ventricular system and sulci are normal. No signal alteration is present within the brainstem or cerebellum. The fourth ventricle is midline and the craniocervical junction lesion is intact. The area of the sella is normal. The bony calvarium and skull base are intact. The visualized paranasal sinuses and mastoid air cells are clear. Physiologic flow voids within the internal carotid and vertebral arteries are maintained. RPTAT:HJJR IMPRESSION: 1. Bilateral anterior cerebral artery distribution subacute ischemic type infarcts involving the cortex of the parasagittal posterior frontal lobes near the convexity and the right greater than left centrum semiovale white matter without associated mass effect. Differential diagnostic possibilities include embolic infarcts, vasculitis and reversible ischemic encephalopathy. Follow-up evaluation is recommended. 2. No mass effect or hemorrhage is present. Physician Robin Date Time Electronically viewed and signed by Jose Martin Kaur Physician on 01/26/2017 00:44 Home Meds Active Scripts Atorvastatin Calcium* (Atorvastatin Calcium*) 20 Mg Tablet, 20 MG PO QHS, #30 TAB Prov:LONG ALFORD MD 01/29/17 Levofloxacin* (Levaquin*) 250 Mg Tablet, 250 MG PO DAILY@06 for 5 Days, TAB Prov:LONG ALFORD MD 01/29/17 Insulin Aspart* (Novolog Insulin Pen*) 100 Unit/Ml Soln, 0 UNIT SC WITH MEALS BEDTIME for 30 Days Prov:LONG ALFORD MD 01/29/17 Gabapentin* (Gabapentin*) 100 Mg Capsule, 100 MG PO TID for 30 Days, CAP Prov:LONG ALFORD MD 01/29/17 Aspirin (Aspir-Betty) 325 Mg Tablet.dr, 325 MG PO DAILY for 30 Days Prov:LONG ALFORD MD 01/29/17 Reported Medications Liraglutide (Victoza 2-Shaji) 0.6 Mg/0.1 Ml Pen.injctr, 1.2 MG SQ QAM, SYR 01/25/17 Insulin Lispro (Humalog) 100 Unit/1 Ml Cartridge, 6 UNIT SQ QAM 01/25/17 Insulin Degludec (Tresiba Flextouch U-100) 100 Unit/1 Ml Insuln.pen, 6 UNIT SQ QPM 01/25/17 Metformin Hcl* (Metformin Hcl*) 1,000 Mg Tablet, 1000 MG PO WITH BREAKFAST DINNE , #30 TAB 01/25/17 Discontinued Reported Medications Metformin* (Glucophage*) 500 Mg Tab, 1000 MG PO BID 07/03/13 Discontinued Scripts [Hydrocodone Bit/Acetaminophen] 1 TAB TAB No Conflict Check, 1 TAB PO Q6H Y for PAIN LEVEL 6-10 for 14 Days, TAB Prov:MARSHALL ZAVALA NP 01/06/16 Follow-up Plan PCP one week Neurology one week Pending Labs Laboratory Tests Test 01/28/17 16:34 01/28/17 20:48 01/29/17 01:57 01/29/17 07:32 Bedside Glucose 250mg/dL (70-220) 261mg/dL (70-220) 163mg/dL (70-220) 177mg/dL (70-220) Test 01/29/17 09:52 01/29/17 11:52 Anion Gap 17 (8-16) Basophils # 0.010^3/ul (0.0-0.1) Basophils % 0.3% (0.0-2.0) Blood Urea Nitrogen 14mg/dl (7-20) Calcium Level 8.7mg/dl (8.4-10.2) Carbon Dioxide Level 24mmol/L (21-31) Chloride Level 101mmol/L (97-110) Creatinine 0.52mg/dl (0.44-1.00) Eosinophils # 0.010^3/ul (0.0-0.5) Eosinophils % 0.4% (0.0-7.0) Glucose Level 303mg/dl (70-220) Hematocrit 36.6% (37.0-47.0) Hemoglobin 13.2g/dl (12.0-16.0) Lymphocytes # 2.710^3/ul (0.8-2.9) Lymphocytes % 27.3% (15.0-51.0) Mean Corpuscular Hemoglobin 30.9pg (29.0-33.0) Mean Corpuscular Hemoglobin Concent 36.1g/dl (32.0-37.0) Mean Corpuscular Volume 85.7fl (82.0-101.0) Mean Platelet Volume 10.9fl (7.4-10.4) Monocytes # 0.410^3/ul (0.3-0.9) Monocytes % 4.2% (0.0-11.0) Neutrophils # 6.710^3/ul (1.6-7.5) Neutrophils % 66.8% (39.0-77.0) Nucleated Red Blood Cells # 0.010^3/ul (0.0-0.0) Nucleated Red Blood Cells % 0.0/100WBC (0.0-0.0) Platelet Count 01595^3/UL (140-415) Potassium Level 3.6mmol/L (3.5-5.1) Red Blood Count 4.2710^6/ul (4.20-5.40) Red Cell Distribution Width 12.0% (11.5-14.5) Sodium Level 138mmol/L (135-144) White Blood Count 10.010^3/ul (4.8-10.8) Bedside Glucose 320mg/dL (70-220) LONG ALFORD MD Jan 29, 2017 12:59
[2017-01-29] MEDS ORDERED: INSULIN ASPART [NOVOLOG] 3 ML PEN SC SCH (18:05)
[2017-01-30] MEDS ORDERED: ACCUCHECK XX SCH (02:00)
--- NOTE | 2017-01-30 05:34 | DS ---
DATE OF ADMISSION: 01/26/2017 DATE OF DISCHARGE: 01/29/2017 REFERRING PHYSICIAN: Dr. Latham The patient is a 43-year-old with dyslipidemia, diabetes, cholecystectomy, left side , TIA. DISCHARGED DIAGNOSES: 1. Transient ischemic attack. We gave the patient aspirin 325 mg once a day. 2. History of dyslipidemia. Keep the patient on Lipitor 80 mg and followup the patient as an outpatient. 3. History of diabetes with peripheral neuropathy. Keep the patient under good control of her bloo d sugar and followup the patient with dietitian counseling for her and fasting blood sugar. 4. Lumbosacral decubitus in which the patient followup by pain management. Again, thank you for asking me to see the patient with you. Dictated By: IAM BUNCH/NTS Conf#: [id number] DID#: [id number] CC: MALLY LATHAM;*EndCC*
== END 2017-01-29 16:15 | disposition home health service (06) | DRG 65 ==
LOC: E/R 12:01 → PP2 17:17 → MS4 20:03 → OBSVTOIN 01-26 13:16
PROVIDERS: ADMIT Hospitalist; ATTEND Hospitalist
DX: I63.9 Cerebral infarction, unspecified (principal); G81.94 Hemiplegia, unspecified affecting left nondominant side; E11.42 Type 2 diabetes mellitus with diabetic polyneuropathy; N39.0 Urinary tract infection, site not specified; E11.65 Type 2 diabetes mellitus with hyperglycemia; B96.20 Unspecified Escherichia coli [E. coli] as the cause of diseases classified elsewhere; M51.16 Intervertebral disc disorders with radiculopathy, lumbar region; E78.5 Hyperlipidemia, unspecified; Z79.4 Long term (current) use of insulin; Z79.84 Long term (current) use of oral hypoglycemic drugs; T38.0X5A Adverse effect of glucocorticoids and synthetic analogues, initial encounter
CPT/HCPCS: 36415; 70450; 70551; 71010; 72157; 72158; 80048; 80053; 80061; 80306; 80307; 81001; 81003; 82550; 82553; 82962; 83036; 83735; 84100; 84436; 84439; 84443; 84479; 84484; 85025; 85610; 85730; 87040; 87086; 93005; 93306; 93880; 96374; 96375; 97162; 97166; 99217; G0378; C9113; J0696; J1100; J1815; J2060; J2930; J7030; J7512

== ENCOUNTER 2017-02-01 09:12 | Emergency (ER) | payer OTHER ==
[~2017-02-01] VITALS: Ht 152.4 cm; Wt 57.5 kg
[~2017-02-01 09:12] MED LIST changes: +ASPI325T32 PO; +ATOR20TA38 PO; +GABA100C14 PO; -Hydrocodone Bit/Acetaminophen PO; +INSU100C SQ; +INSU100I31 SQ; +LEVO250T35 PO; +LIRA0.6P SQ; +METF1000 PO; -METF500T4 PO; +NOVO3I SC
[2017-02-01 09:22] VITALS: Ht 152.4 cm; Wt 57.5 kg
[2017-02-01] MEDS ORDERED: KETOROLAC 15 MG INJ IV STA (10:28)
[2017-02-01] MEDS ORDERED: SOD CHLORIDE 0.9% 1,000 ML IV STA (10:28)
[2017-02-01] MEDS ORDERED: LORAZEPAM 2 MG INJ IV ONE (10:30)
[2017-02-01 11:08] LABS: ADD UMIC NO; URINE BILIRUBIN (Dip) NEGATIVE (NEGATIVE); URINE BLOOD (Dip) NEGATIVE (NEGATIVE); URINE COLOR LT. YELLOW (YELLOW); URINE GLUCOSE (Dip) >=1000 % (NEGATIVE); URINE KETONES (Dip) NEGATIVE (NEGATIVE); URINE LEUKOCYTE ESTERASE (Dip) NEGATIVE (NEGATIVE); URINE NITRITE (Dip) NEGATIVE (NEGATIVE); URINE TOTAL PROTEIN (Dip) NEGATIVE (NEGATIVE); URINE UROBILINOGEN (Dip) 0.2 E.U./dL (0.1-1.0)
--- NOTE | 2017-02-01 11:11 | RADRPT ---
PROCEDURE: CT Brain without contrast. CLINICAL INDICATION: Intracranial hemorrhage. TECHNIQUE: A multiplanar CT of the brain was performed on a CT scanner utilizing axial imaging fro m the skull base through the vertex without IV contrast. The CTDIvol is 44.93 mGy and the DLP is 63 0.2 mGycm. One or more of the following dose reduction techniques were utilized: Automated exposur e control, adjustment of the mA and/or kV according to patient size, use of iterative reconstruction technique. COMPARISON: None FINDINGS: No evidence of intracranial hemorrhage or abnormal extra-axial fluid collection. The brain parenchyma is normal attenuation morphology with preservation of llamas white differentiatio n and age appropriate size of the ventricles and subarachnoid spaces. The basal cisterns, posterior fossa contents, brainstem, craniocervical junction, orbits, pituitary axis, paranasal sinuses, mastoid air cells, and calvarium are unremarkable. IMPRESSION: 1. No intracranial hemorrhage or acute intracranial abnormality. RPTAT:AAJJ Physician Reg Date Time Electronically viewed and signed by Physician Reg on 02/01/2017 11:11 CINTHYA/
[2017-02-01 11:19] VITALS: BP 103/75; PULSE 78; RESP 20; TEMP 98.7
[2017-02-01 11:27] LABS: POTASSIUM 4.3 mmol/L (3.5-5.1)
[2017-02-01 11:30] LABS: CREATININE 0.46 mg/dl (0.44-1.00)
[2017-02-01 11:31] LABS: ADD SCAN DIFF NO; CALCIUM 9.4 mg/dl (8.4-10.2)
[2017-02-01 11:32] LABS: BASOPHILS % 0.2 % (0.0-2.0); EOSINOPHILS # 0.1 10^3/ul (0.0-0.5); EOSINOPHILS % 0.4 % (0.0-7.0); HEMATOCRIT 40.2 % (37.0-47.0); HEMOGLOBIN 14.7 g/dl (12.0-16.0); LYMPHOCYTES # 1.4 10^3/ul (0.8-2.9); LYMPHOCYTES % 10.5 % (15.0-51.0); MEAN CORPUSCULAR HEMOGLOBIN 31.2 pg (29.0-33.0); MEAN CORPUSCULAR HGB CONC 36.6 g/dl (32.0-37.0); MEAN CORPUSCULAR VOLUME 85.4 fl (82.0-101.0); MONOCYTE # 0.6 10^3/ul (0.3-0.9); MONOCYTES % 4.6 % (0.0-11.0); NEUTROPHIL # 11.2 10^3/ul (1.6-7.5); NEUTROPHILS % 83.2 % (39.0-77.0); PLATELET COUNT 233 10^3/UL (140-415); RED BLOOD COUNT 4.71 10^6/ul (4.20-5.40); RED CELL DISTRIBUTION WIDTH 12.5 % (11.5-14.5)
[2017-02-01 11:35] LABS: WHITE BLOOD COUNT 13.4 10^3/ul (4.8-10.8)
[2017-02-01] MEDS ORDERED: ALPR0.5T PO (11:44)
--- NOTE | 2017-02-01 11:50 | ERD ---
ER Documentation Chief Complaint Date/Time DATE: 02/01/17 TIME: 11:45 Chief Complaint cva lat saturday, facial numbness today HPI This is a 42-year-old woman with a recent history of bilateral LONNIE infarct with subsequent bilateral lower extremity paresis and paresthesias. She states she has had weakness in her legs and intermittent paresthesias 2 weeks, weakness 2 months. She is here for pain control. She has had no loss of bowel or bladder control, no fevers or chills, no chest pain or shortness of breath. Patient denies slurred speech, no recent falls, no headache or blurry vision, no neck pain or stiffness. Patient has been using all her medications as prescribed and does have follow-up with her neurologist. ROS All systems reviewed and are negative except as per history of present illness. Medications Home Meds Active Scripts Alprazolam* (Xanax*) 0.5 Mg Tab, 0.5 MG PO TID for ANXIETY, #15 TAB Prov:SONU REILLY MD 02/01/17 Atorvastatin Calcium* (Atorvastatin Calcium*) 20 Mg Tablet, 20 MG PO QHS, #30 TAB Prov:LONG ALFORD MD 01/29/17 Levofloxacin* (Levaquin*) 250 Mg Tablet, 250 MG PO DAILY@06 for 5 Days, TAB Prov:LONG ALFORD MD 01/29/17 Insulin Aspart* (Novolog Insulin Pen*) 100 Unit/Ml Soln, 0 UNIT SC WITH MEALS BEDTIME for 30 Days Prov:LONG ALFORD MD 01/29/17 Gabapentin* (Gabapentin*) 100 Mg Capsule, 100 MG PO TID for 30 Days, CAP Prov:LONG ALFORD MD 01/29/17 Aspirin (Aspir-Betty) 325 Mg Tablet.dr, 325 MG PO DAILY for 30 Days Prov:LONG ALFORD MD 01/29/17 Reported Medications Liraglutide (Victoza 2-Shaji) 0.6 Mg/0.1 Ml Pen.injctr, 1.2 MG SQ QAM, SYR 01/25/17 Insulin Lispro (Humalog) 100 Unit/1 Ml Cartridge, 6 UNIT SQ QAM 01/25/17 Insulin Degludec (Tresiba Flextouch U-100) 100 Unit/1 Ml Insuln.pen, 6 UNIT SQ QPM 01/25/17 Metformin Hcl* (Metformin Hcl*) 1,000 Mg Tablet, 1000 MG PO WITH BREAKFAST DINNE , #30 TAB 01/25/17 Allergies Allergies: Coded Allergies: No Known Drug Allergy (Verified Allergy, Unknown, 02/01/17) PMhx/Soc History of bilateral lower extremity weakness/paresis and left upper extremity paresis, 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, diabetes mellitus, peripheral neuropathy, decubitus pressure sores, hypertension , recent gait ataxia due to lower extremity paresis History of Surgery: Yes (appendectomy, c section) Anesthesia Reaction: No Hx Neurological Disorder: Yes (current numbness legs) Hx Respiratory Disorders: No Hx Cardiac Disorders: Yes (HTN) Hx Psychiatric Problems: No Hx Miscellaneous Medical Probl: Yes (DM, CVA) Hx Alcohol Use: Yes (Socially ) Hx Substance Use: No Hx Tobacco Use: No Smoking Status: Never smoker FmHx Family History: No diabetes Physical Exam Vitals Vital Signs Date Time Temp Pulse Resp B/P Pulse Ox O2 Delivery O2 Flow Rate FiO2 02/01/17 11:19 98.7 78 20 103/75 97 Room Air 02/01/17 09:22 98.7 105 20 146/87 99 Physical Exam GENERAL: Well-developed, well-nourished, anxious HEENT: Moist mucous membranes, pink conjunctiva, no cervical spine tenderness or step-off deformities, no goiter, no jaundice or icterus, extraocular movements intact without pain. No submandibular induration, and no pharyngeal erythema NEURO: Alert and oriented 3, cranial nerves II through XII intact bilaterally, pupils equal round reactive to light, bilateral lower extremity weakness about 4 /5 to the lower extremities bilaterally although with flexion at the hip and knee patient does complain of mild pain so seems some of the weakness is pain related, mud logger strength is normal bilaterally 5/5, no pronator drift, negative Babinski sign, distal sensation intact bilaterally CARDIAC: Regular rate and rhythm, no murmurs rubs or gallops LUNGS: Clear bilaterally no wheezing crackles or stridor ABDOMEN: Soft nontender, no guarding, no rigidity, no rebound, no psoas sign no obturator sign. Normoactive bowel sounds SKIN: Warm and dry to touch, no abrasions, contusions, or hematomas, no lacerations, no ecchymosis, no target lesions, and without ulcers EXTREMITIES: No clubbing cyanosis or edema, calves are bilaterally symmetrical, no Homans sign, no popliteal cord sign. Distal pulses equal and bilateral PSYCH: Appears anxious Result Diagram: 02/01/17 1030 02/01/17 1030 Results 24 hrs Laboratory Tests Test 02/01/17 10:30 02/01/17 10:47 02/01/17 10:50 Anion Gap 17 Basophils # 0.010^3/ul Basophils % 0.2% Blood Urea Nitrogen 13mg/dl Calcium Level 9.4mg/dl Carbon Dioxide Level 25mmol/L Chloride Level 100mmol/L Creatinine 0.46mg/dl Eosinophils # 0.110^3/ul Eosinophils % 0.4% Glucose Level 267mg/dl Hematocrit 40.2% Hemoglobin 14.7g/dl Lymphocytes # 1.410^3/ul Lymphocytes % 10.5% Mean Corpuscular Hemoglobin 31.2pg Mean Corpuscular Hemoglobin Concent 36.6g/dl Mean Corpuscular Volume 85.4fl Mean Platelet Volume 11.0fl Monocytes # 0.610^3/ul Monocytes % 4.6% Neutrophils # 11.210^3/ul Neutrophils % 83.2% Nucleated Red Blood Cells # 0.010^3/ul Nucleated Red Blood Cells % 0.0/100WBC Platelet Count 67190^3/UL Potassium Level 4.3mmol/L Red Blood Count 4.7110^6/ul Red Cell Distribution Width 12.5% Sodium Level 138mmol/L White Blood Count 13.410^3/ul Bedside Glucose 285mg/dL Urine Bilirubin NEGATIVE Urine Clarity CLEAR Urine Color LT. YELLOW Urine Glucose >=1000% Urine Hemoglobin NEGATIVE Urine Ketones NEGATIVE Urine Leukocyte Esterase NEGATIVE Urine Nitrite NEGATIVE Urine Specific [place] 1.010 Urine Total Protein NEGATIVE Urine Urobilinogen 0.2 E.U./dL Urine pH 6.0 Current Medications Medications (Trade) Dose Ordered Sig/Yue Route PRN Reason Start Time Stop Time Status Last Admin Dose Admin Lorazepam 0.5 mg 0.5 mg ONCE ONCE IV 02/01/17 10:30 02/01/17 10:31 DC 02/01/17 11:34 Sodium Chloride (NS) 1,000 ml @ 1,000 mls/hr Q1H STAT IV 02/01/17 10:28 02/01/17 11:27 DC 02/01/17 11:34 Ketorolac Tromethamine (Toradol) 15 mg ONCE STAT IV 02/01/17 10:28 02/01/17 10:31 DC 02/01/17 11:34 Procedures/MDM IV line was established patient was placed on front desk monitor rhythm strip revealed a sinus rhythm at about 80 bpm with upright P and T waves. Patient was afebrile. CT scan of the brain was performed that was negative for acute bleed mass or shift. I administered 1 L normal saline intravenously, Toradol 50 mg IV, lorazepam 0.5 mg IV with good effect. CBC and electrolytes were unremarkable, urine analysis was negative for infection I reviewed this patient's extensive medical records, imaging studies, fundraising consultant notes, and previous labs. Differential diagnoses considered, included but not limited to acute coronary syndrome, pulmonary embolism, aortic dissection, abdominal aortic aneurysm, sepsis, stroke, meningitis, encephalitis, pneumonia, appendicitis, cholecystitis , bowel obstruction, pyelonephritis, nephrolithiasis, cystitis, as well as metabolic, hematologic, and electrolyte abnormalities. As well as abscess, cellulitis, fractures, and dislocations. Patient feels much better at this time, and vital signs are normal, symptoms have improved. I did give strict instructions to return to the ED if symptoms continue or worsen, patient will otherwise follow-up with primary care physician. Patient understood instructions and agreed to plan. Departure Diagnosis: Primary Impression: Stroke CVA mechanism: thrombosis Precerebral and cerebral artery: anterior cerebral artery Laterality of affected vessel: bilateral Qualified Code: I63.323 - Cerebrovascular accident (CVA) due to bilateral thrombosis of anterior cerebral arteries Additional Impressions: Paresis of lower extremity Paresthesias Condition: Good Patient Instructions: Symptoms of Stroke, Stroke, Paraesthesias SONU REILLY MD Feb 01, 2017 11:50
== END 2017-02-01 13:08 | disposition home or self-care (01) ==
LOC: E/R 09:12
DX: I63.323 Cerebral infarction due to thrombosis of bilateral anterior cerebral arteries (principal); R20.2 Paresthesia of skin; G83.10 Monoplegia of lower limb affecting unspecified side; I10 Essential (primary) hypertension; E11.9 Type 2 diabetes mellitus without complications; Z79.82 Long term (current) use of aspirin; Z79.84 Long term (current) use of oral hypoglycemic drugs; Z79.4 Long term (current) use of insulin
CPT/HCPCS: 36415; 70450; 80048; 81003; 82962; 85025; 96374; 96375; J1885; J2060; J7030; Z7502

== ENCOUNTER 2017-06-07 07:56 | Day surgery (SDC) | payer OTHER ==
[~2017-06-07] VITALS: Ht 152.4 cm; Wt 57.1 kg
[2017-06-07] VITALS (14 sets, daily range): BP systolic 90–107; BP diastolic 56–72; PULSE 60–82; RESP 14–25; Ht 152.4 cm; Wt 57.1 kg
[~2017-06-07 07:56] MED LIST changes: +ALPR0.5T PO
[2017-06-07] MEDS ORDERED: INSU200I SQ (09:15)
[2017-06-07] MEDS ORDERED: CLOP75TA27 PO (09:16)
[2017-06-07] MEDS ORDERED: SOLIQUA SQ (09:16)
[2017-06-07] MEDS ORDERED: ATOR40TA68 PO (09:17)
[2017-06-07] MEDS ORDERED: ISOS10TA2 PO (09:17)
[2017-06-07 09:39] LABS: ADD SCAN DIFF NO
[2017-06-07 09:51] LABS: BASOPHILS % 0.3 % (0.0-2.0); EOSINOPHILS # 0.1 10^3/ul (0.0-0.5); EOSINOPHILS % 0.9 % (0.0-7.0); HEMATOCRIT 39.8 % (37.0-47.0); HEMOGLOBIN 14.1 g/dl (12.0-16.0); LYMPHOCYTES # 1.3 10^3/ul (0.8-2.9); LYMPHOCYTES % 19.9 % (15.0-51.0); MEAN CORPUSCULAR HEMOGLOBIN 30.6 pg (29.0-33.0); MEAN CORPUSCULAR HGB CONC 35.4 g/dl (32.0-37.0); MEAN CORPUSCULAR VOLUME 86.3 fl (82.0-101.0); MEAN PLATELET VOLUME 11.7 fl (7.4-10.4); MONOCYTE # 0.4 10^3/ul (0.3-0.9); MONOCYTES % 6.4 % (0.0-11.0); NEUTROPHIL # 4.7 10^3/ul (1.6-7.5); NEUTROPHILS % 72.2 % (39.0-77.0); PLATELET COUNT 214 10^3/UL (140-415); RED BLOOD COUNT 4.61 10^6/ul (4.20-5.40); RED CELL DISTRIBUTION WIDTH 12.5 % (11.5-14.5); WHITE BLOOD COUNT 6.5 10^3/ul (4.8-10.8)
[2017-06-07] MEDS ORDERED: FAMOTIDINE 20 MG TAB PO SCH (10:00)
[2017-06-07] MEDS ORDERED: SOD CHLORIDE 0.45% 1,000 ML IV SCH (10:00)
[2017-06-07] MEDS ORDERED: DIAZEPAM 5 MG TAB PO SCH (10:00)
[2017-06-07] MEDS ORDERED: DIPHENHYDRAMINE 50 MG CAP PO SCH (10:00)
[2017-06-07 10:04] LABS: INR 1.02; PROTIME 13.4 Sec (12.2-14.2)
--- NOTE | 2017-06-07 10:06 | RADRPT ---
PROCEDURE: Chest Radiograph. CLINICAL INDICATION: Preop TECHNIQUE: Single frontal chest radiograph. COMPARISON: Chest radiograph 01/25/2017 FINDINGS: The cardiomediastinal silhouette is within normal limits. No infiltrate or effusion is seen. Th e bones are intact. IMPRESSION: 1. Unremarkable chest radiograph. RPTAT: KK .Chuy Tran MD, MD Date Time Electronically viewed and signed by .Chuy Tran MD, on 06/07/2017 10:05 .B/
[2017-06-07 10:12] LABS: ALBUMIN 4.7 g/dl (3.3-4.9); ALBUMIN/GLOBULIN RATIO 1.74; BILIRUBIN,INDIRECT 0.5 mg/dl (0-1.1); BILIRUBIN,TOTAL 0.5 mg/dl (0.2-1.3); CHOL/HDL RATIO 2.4 RATIO; TOTAL PROTEIN 7.4 g/dl (6.1-8.1)
[2017-06-07 10:13] LABS: PARTIAL THROMBOPLASTIN TIME 23.9 Sec (25.0-35.0)
[2017-06-07 10:21] LABS: CALCIUM 9.4 mg/dl (8.4-10.2); CREATININE 0.49 mg/dl (0.44-1.00); POTASSIUM 4.8 mmol/L (3.5-5.1)
[2017-06-07] MEDS ORDERED: LIDOCAINE 1% (MDV) 20 ML INJ ONE (11:47)
[2017-06-07] MEDS ORDERED: MIDAZOLAM 1 MG/ML 2 ML INJ ONE (11:48)
[2017-06-07] MEDS ORDERED: HEPARIN 1000 UNITS/ML 10 ML INJ ONE (11:48)
[2017-06-07] MEDS ORDERED: FENTAnyl 50 MCG/ML VIAL ONE (11:48)
[2017-06-07] MEDS ORDERED: VERAPAMIL 5 MG INJ ONE (11:49)
[2017-06-07] MEDS ORDERED: NITROGLYCERIN (IC) 100 MCG/ML INJ ONE (11:49)
[2017-06-07] MEDS ORDERED: SOD CHLORIDE 0.9% 1,000 ML IV SCH (12:52)
[2017-06-07] MEDS ORDERED: AL HYDROX/MG HYDROX/SIMETH 30 ML CUP PO PRN (13:00)
[2017-06-07] MEDS ORDERED: ACETAMINOPHEN 325 MG TAB PO PRN (13:00)
[2017-06-07] MEDS ORDERED: morphine 2 MG INJ IV PRN (13:00)
--- NOTE | 2017-06-07 13:06 | OPR ---
Date/Time of Note Date/Time of Note DATE: 06/07/17 TIME: 13:01 Operative Report Procedure Date: Jun 07, 2017 Preoperative Diagnosis abnormal cardiac stress test/chest pain Postoperative Diagnosis non-obstructive cad Operation Performed 1.LHC 2.Coronary angiography 3.LV gram 4.30 minutes concious sedation Surgeon: NICKY QUINN Anesthesia: general, other (concious sedation) Estimated Blood Loss: minimal Complications: None Complications none Pt Condition Post Procedure: stable Disposition: PACU Indications chest pain, abnormal cardiac stress test Operative\Procedure Findings 20% mid LAD LVEDP 23 NO sig by gradient LVEF 55-60% 1+MR Procedure Description 6 j[place]ican [place] 3.5, FR4, pigtail NICKY QUINN Jun 07, 2017 13:05
--- NOTE | 2017-06-07 14:03 | RADRPT ---
Vent Rate: 61 bpm RR Interval: 0 msec CA Interval: 176 msec QRS Duration: 92 msec QT Interval: 412 msec QTC Interval: 414 msec P-R-T [place]: 59 - 65 - 60 degrees Normal sinus rhythm Normal ECG Electronically Signed By: Calvin Hutchinson [id number]
== END 2017-06-07 16:57 | disposition home or self-care (01) ==
LOC: SDS 07:56
PROVIDERS: ATTEND Internal Medicine
DX: I25.10 Atherosclerotic heart disease of native coronary artery without angina pectoris (principal); R94.39 Abnormal result of other cardiovascular function study
CPT/HCPCS: 71010; 80053; 80061; 82962; 85025; 85610; 85730; 93005; 93458; C1769; C1887; J1644; J2250; J3010; Z7610

== ENCOUNTER 2017-12-11 18:25 | Emergency (ER) | END 2017-12-12 01:56 | disposition home or self-care (01) ==

== ENCOUNTER 2018-03-17 13:15 | Observation (INO) | END 2018-03-20 17:34 | disposition home or self-care (01) ==

== ENCOUNTER 2018-05-22 06:47 | Inpatient (IN) | END 2018-05-23 15:00 | disposition home or self-care (01) | DRG 66 ==

== ENCOUNTER 2019-06-01 08:53 | Emergency (ER) | payer OTHER ==
[~2019-06-01] VITALS: Ht 157.5 cm; Wt 60.9 kg
[~2019-06-01 08:53] MED LIST changes: -ALPR0.5T PO; +ASPI-817 PO; -ASPI325T32 PO; -ATOR20TA38 PO; +ATOR40TA68 PO; +CLOP75TA27 PO; -GABA100C14 PO; -INSU100I31 SQ; +INSU100I33 SC; +ISOS10TA2 PO; +LANT3I SC; +LEVE-5 PO; -LEVO250T35 PO; -LIRA0.6P SQ; -METF1000 PO; +METF500T PO; -NOVO3I SC; +PANT40TA4 PO
[2019-06-01 09:11] VITALS: BP 124/68; PULSE 79; RESP 18; Ht 157.5 cm; Wt 60.9 kg
--- NOTE | 2019-06-01 09:51 | ERD ---
ER Documentation Chief Complaint Chief Complaint left head/neck pain s/p fall last night HPI 44-year-old female with history of stroke 3 years ago for which she is taking blood thinners presents with complaint of head pain in the back of her head after slipping and falling from a standing position last night. Patient denies any preceding dizziness, lightheadedness, or syncope, rather just states she slipped and fell. Patient states there is currently moderate pain in the back of her head. Patient states she threw up once after the incident and has felt somewhat nauseous since then. Patient denies any numbness, weakness, amnesia, and altered mental status, vision problems. ROS All systems reviewed and are negative except as per history of present illness. Medications Home Meds Active Scripts Insulin Glargine* (Lantus*) 100 Unit/Ml Soln, 32 UNIT SC DAILY@08 for 30 Days Prov:LONG ALFORD MD 05/23/18 Pantoprazole (Protonix) 40 Mg Tabec, 40 MG PO DAILY, #30 TAB Prov:LIBERTY AMADOR NP 03/20/18 Metformin Hcl (Glucophage) 500 Mg Tablet, 1000 MG PO WITH BREAKFAST DINNE, #60 TAB Prov:REGLIBERTY ALCANTAR NP 03/20/18 Levetiracetam* (Keppra*) 500 Mg Tablet, 500 MG PO BID, #60 TAB Prov:REGLIBERTY ALCANTAR NP 03/20/18 Isosorbide Dinitrate* (Isordil*) 10 Mg Tablet, 10 MG PO BID, #60 TAB Prov:LIBERTY AMADOR NP 03/20/18 Aspirin* (Aspirin* EC) 81 Mg Tablet.dr, 81 MG PO DAILY, #30 TAB Prov:LIBERTY AMADOR NP 03/20/18 Atorvastatin* (Atorvastatin*) 40 Mg Tablet, 40 MG PO QHS, #30 TAB Prov:LIBERTY AMADOR NP 03/20/18 Clopidogrel Bisulfate (Clopidogrel) 75 Mg Tablet, 75 MG PO DAILY, #30 TAB Prov:LIBERTY AMADOR NP 03/20/18 Reported Medications Insulin Lispro (Humalog) 100 Unit/1 Ml Cartridge, 10 UNIT SQ AC MEALS, EA 05/20/18 Insulin Glargine,Hum.rec.anlog (Basaglar Kwikpen U-100) 100 Unit/1 Ml Insuln.pen, 1515 UNIT SC QHS, EA 05/20/18 Allergies Allergies: Coded Allergies: No Known Drug Allergy (Unverified Allergy, Unknown, 05/20/18) PMhx/Soc History of Surgery: Yes Anesthesia Reaction: No Hx Neurological Disorder: Yes (Focal weakness,CVA) Hx Respiratory Disorders: No Hx Cardiac Disorders: Yes (HYPERCHOLESTEROLEMIA) Hx Psychiatric Problems: No Hx Miscellaneous Medical Probl: Yes (See EMR for details. ) Hx Alcohol Use: No Hx Substance Use: No Hx Tobacco Use: No Smoking Status: Never smoker FmHx Family History: No diabetes, No coronary disease, No other Physical Exam Vitals Vital Signs Date Temp Pulse Resp B/P (MAP) Pulse Ox O2 O2 Flow FiO2 Time Delivery Rate 06/01/19 97.6 79 18 124/68 98 09:11 (86) Physical Exam General: Well developed, well nourished. No acute distress. Head: Atraumatic. No hematomas, martin sign, raccoon eyes, or other signs of fracture. Eyes: PERRLA. No icterus, lesions, injection, or edema. Ears: No hematotympanum Nose: No rhinorrhea Neck: Full range of motion with no midline tenderness to palpation. Heart: RR w/o murmur, rubs, or gallops. Lungs: Clear to auscultation bilaterally w/o wheezes, crackles, rhonchi. Symmetric rise and fall. Equal breath sounds. Extremities: 5/5 strength and full ROM of upper and lower extremeties bilaterally. Distal sensation and pulses intact. Normal cap refill. Neuro: CN II through XII intact. Rapid alternating movement intact. No cerebellar or gait deficits. Strength and sensation intact. Alert and oriented x3. Psych: Normal mood and affect. Results 24 hrs Laboratory Tests Test 06/01/19 09:51 POC Beta HCG, Qualitative NEGATIVE Procedures/MDM DIAGNOSTIC IMAGING REPORT Patient: EDUARD LA : 1975 Age: 44 Sex: F MR #: [id number] DOS: 06/01/19 0935 Ordering MD: DEISY KRUSE Location: [facility] Room/Bed: PROCEDURE: CT Brain without contrast. CLINICAL INDICATION: Trauma TECHNIQUE: A CT of the brain was performed on a multidetector CT scanner utilizing axial imaging from the skull base through the vertex without IV contrast. Multiplanar reformatted images were made. Images were reviewed on a PACS workstation. The CTDIvol is 40 mGy and the DLP is 634 mGycm. DICOM images are available. One or more of the following dose reduction techniques were utilized: 1.) Automated exposure control 2.) Adjustment of the mA +/- kV according to patient's size 3.) Use of iterative reconstruction technique. COMPARISON: Head CT May 19, 2018 FINDINGS: There is no intracranial hemorrhage, mass effect, or midline shift. No extra- axial fluid collection is seen. The ventricles and sulci are normal in size and configuration. Noted are chronic cortical and subcortical white matter infarcts on the right and left frontal vertex. There is a chronic lacunar infarct in the midline in the genu of the corpus callosum. the llamas white matter differentiation appears well-preserved. The visualized paranasal sinuses and osseous structures are grossly unremarkable. No skull fracture is visualized and there is no scalp hematoma. IMPRESSION: No intracranial hemorrhage or skull fracture. Chronic cortical and subcortical white matter infarct vertex right and left frontal lobe. Chronic lacunar infarct in the midline genu corpus callosum. No mass or evidence of acute transcortical infarct. .Demarcus Joshi MD, MD Date Time Electronically viewed and signed by .Demarcus Joshi MD, MD on 06/01/2019 10:36 .A/ CC: DEISY KRUSE [id number] MDM: Given patient's history of fall and being on blood thinners, decision was made to CT patient with approval supervising physician. Results within normal limits. Given patient's physical exam and low risk stratification according to [place] CT head rule, I do not feel lumbar puncture since her at this time. At this time of low suspicion for intracranial bleed, skull fracture, neck fracture, or any other emergent condition. At this time, patient is stable for discharge and outpatient management. I have instructed the patient to follow-up with his/her primary care physician in 1-2 days. I have discussed with the patient the possibility of needing to see a specialist for further workup and imaging studies if symptoms persist. I have instructed the patient to promptly return to the ER for any new or worsening symptoms including but not limited to increased pain, fever, nausea, vomiting, weakness or LOC. The patient and/or family expressed understanding of and agreement with this plan. All questions were answered. Home care instructions were provided. Communication with patient both during the exam and instructions for discharge were performed with using a canvas marker . Patient gave verbal confirmation to the practitioner, through the canvas marker, that they understood everythign that was being said to them. DISCLAIMER: Inadvertent spelling and grammatical errors are likely due to EHR/dictation software use and do not reflect on the overall quality of patient care. Also, please note that the electronic time recorded on this note does not necessarily reflect the actual time of the patient encounter. Departure Diagnosis: Primary Impression: Acute head injury Condition: Stable URIAHDEISY Jun 01, 2019 09:51
== END 2019-06-01 11:16 | disposition home or self-care (01) ==
LOC: FTE 08:53
DX: S09.90XA Unspecified injury of head, initial encounter (principal); R51 Headache; W01.0XXA Fall on same level from slipping, tripping and stumbling without subsequent striking against object, initial encounter; Y92.9 Unspecified place or not applicable; Z79.01 Long term (current) use of anticoagulants; Z86.73 Personal history of transient ischemic attack (TIA), and cerebral infarction without residual deficits; Z79.82 Long term (current) use of aspirin; Z79.4 Long term (current) use of insulin
CPT/HCPCS: 70450; 81025; Z7502